=== PATIENT | female | born 1970 | race Caucasian/White ===

== ENCOUNTER → 2020-05-12 15:56 | Outpatient (BNVA) | payer OTHER, SELFPAY | PROVIDERS: PCP Internal Medicine; Referring Provider Internal Medicine; Visit Provider Nurse Practitioner | DX: Z76.89 Persons encountering health services in other specified circumstances (principal) ==

== ENCOUNTER 2020-05-23 09:53 | Outpatient (REF) | payer OTHER, SELFPAY ==
[2020-05-23 10:12] LABS: Basophils Absolute Auto 0.1 X10*3/uL (0.0-0.2); Basophils Percent Auto 0.5 % (0-2); Eosinophils Absolute Auto 0.2 X10*3/uL (0.0-0.4); Eosinophils Percent Auto 2.3 % (0-4); Hematocrit 45.9 % (37-47); Hemoglobin 15.1 g/dl (12.0-16.0); Imm Gran Abs Auto 0.04 X10*3/uL (0.00-0.03); Imm Gran Pct Auto 0.4 % (0.0-0.4); Lymphocytes Absolute Auto 2.1 X10*3/uL (1.2-4.9); Lymphocytes Percent Auto 22.4 % (20-40); MANUAL DIFF FLAG NO; Mean Corpuscular HGB Conc 32.9 g/dl (31.0-35.0); Mean Corpuscular Hemoglobin 28.4 pg (27.0-33.0); Mean Corpuscular Volume 86.3 fL (80-98); Mean Platelet Volume 10.5 fL (9.4-12.3); Monocytes Absolute Auto 0.6 X10*3/uL (0.1-1.2); Monocytes Percent Auto 6.5 % (2-11); Neutrophils Absolute Auto 6.2 X10*3/uL (2.0-8.3); Neutrophils Percent Auto 67.9 % (45-73); Platelet Count 323 X10*3/uL (160-400); Red Blood Count 5.32 X10*6/uL (4.20-5.50); Red Cell Distribution Width 13.2 % (11.0-16.0); White Blood Count 9.2 X10*3/uL (4.8-10.8)
[2020-05-23 10:46] LABS: Alanine Aminotransferase 11 U/L (0-31); Albumin Level 4.4 g/dL (3.5-5.0); Alkaline Phosphatase 74 U/L (39-117); Anion Gap 13 (12-20); Aspartate Amino Transferase 14 U/L (5-31); Bilirubin Total 0.6 mg/dL (0.0-1.0); Blood Urea Nitrogen 17 mg/dL (9-16); Calcium 9.4 mg/dL (8.4-10.2); Carbon Dioxide 30 mmol/L (22-29); Chloride 102 mmol/L (96-108); Cholesterol 214 mg/dL; Estimated Glomerular Filt Rate > 60; Glucose Random 107 mg/dL (60-115); HDL Cholesterol 57 mg/dL; LDL Cholesterol Calculated 134 mg/dl; Potassium 3.7 mmol/l (3.3-5.1); Sodium 141 mmol/L (135-145); Total Protein 8.1 g/dL (6.5-8.0); Triglycerides 116 mg/dL
[2020-05-25 04:32] LABS: Folate 8.8 ng/mL (> or = 4.0); Vitamin B12 184 pg/mL (200-900)
== END 2020-05-23 09:54 | disposition home or self-care (01) ==
LOC: HO.LAB 09:53
PROVIDERS: PCP Internal Medicine; Visit Provider Internal Medicine
DX: E78.00 Pure hypercholesterolemia, unspecified (principal)
CPT/HCPCS: 36415; 80053; 80061; 82607; 82746; 84443; 85025

== ENCOUNTER 2020-08-11 10:28 | Day surgery (SDC) | payer OTHER, SELFPAY ==
[2020-08-05 12:05] VITALS: BMI 32.7
[2020-08-05 13:40] VITALS: BMI 31.1
--- NOTE | 2020-08-10 10:46 | HO.ANESPROP2 ---
Documented by User: Adamaris Walter 08/10/20 10:52 HPI - Anesthesia Eval Consult details Narrative: 50yo F for Upper Endoscopy and Colonoscopy PMFSH Active Problems Active Problems: All Active Problems (Updated 08/05/20 @ 12:05 by Elina Reynolds) Annual physical exam (Acute) Dysphagia (Acute) Abscess of right earlobe (Acute) Plantar fasciitis of left foot (Acute) Vitamin B12 deficiency (Acute) Migraine (Acute) Family history of colon cancer (Acute) Hypercholesterolemia (Acute) Obesity (BMI 30-39.9) (Acute) Past Medical History Medical History Family history of colon cancer Hypercholesterolemia Migraine Obesity (BMI 30-39.9) Ovarian cyst Vitamin B12 deficiency Family History Family History Father Colon cancer Mother Lymphoma Maternal Grandmother Lymphoma Surgical History Surgical History History of dilatation and curettage History of left salpingo-oophorectomy Hx of colonoscopy (~1999) Social History Social History Smoking Status: Former smoker Years Smoked: 19 years old Smoking Quit Date: Use of substances other than those prescribed or required for medical reasons: No Advance Directives: No Advance Directives Information Provided: No Advance Directives on File: No Meds Allergies Allergy/AdvReac Type Severity Reaction Status Date / Time No Known Allergies Allergy Verified 08/05/20 13:40 Home Medications Medication Instructions Recorded Confirmed Last Taken Type multivitamin with minerals-ferrous 1 tab PO DAILY tab 03/09/20 06/26/20 Unknown History sulfate 4.5 mg iron tablet Exam Exam Date and Time: August 10, 2020 1046 Height,Weight and Vital Signs: Height 5 ft 6 in Weight 87.543 kg Assessment and Plan Assessment Anesthesia Assessment: Chart Reviewed Documented by User: Suzy Rivers 08/11/20 11:46 [facility] Past Medical History Medical History Family history of colon cancer Hypercholesterolemia Migraine Obesity (BMI 30-39.9) Ovarian cyst Vitamin B12 deficiency Family History Family History Father Colon cancer Mother Lymphoma Maternal Grandmother Lymphoma Family history of problems with anesthesia: No Surgical History Surgical History History of dilatation and curettage History of left salpingo-oophorectomy Hx of colonoscopy (~1999) History of Problems with Anesthesia: No Social History Social History Smoking Status: Former smoker Years Smoked: 19 years old Smoking Quit Date: Use of substances other than those prescribed or required for medical reasons: No Advance Directives: No Advance Directives Information Provided: No Advance Directives on File: No Meds Allergies Allergy/AdvReac Type Severity Reaction Status Date / Time No Known Allergies Allergy Verified 08/05/20 13:40 Home Medications Medication Instructions Recorded Confirmed Last Taken Type multivitamin with minerals-ferrous 1 tab PO DAILY tab 03/09/20 06/26/20 Unknown History sulfate 4.5 mg iron tablet Exam Height,Weight and Vital Signs: Vital Signs Temp Pulse Resp BP Pulse Ox 08/11/20 11:03 98.0 F 72 16 137/59 L 98 Pertinent Lab Results Pertinent Lab Results: 12 lead EKG: NSR 66. LAD. NS T wave abnormality. Narrative Narrative: Patient with inverted P waves on monitor. 12 lead EKG NSTW abnormality. Patient does not have any h/o cardiac symptoms. No CP, dizziness, faintness, palpitations. VSS. Ok to proceed. Airway Mallampati Class: II TM Dist: >3cm Neck ROM: Full Loose/Missing/Broken Teeth: Yes (Missing back right, broken back left) Heart: RRR Lungs: CTAB Assessment and Plan Assessment Anesthesia Assessment: Anesthesia Plan Discussed and Chart Reviewed Final Anesthetic Review NPO: Yes ASA Class: II Final Preanesthetic Review: No Changes in Pt Med Stat, Meds/Allgs Chart Reviewed, Consent Obtained/Reviewed and Anes Risks/Benef Reviewed Patient Risk: Low Procedure Risk: Low Assessment/Block/Sedation in SS: Assess/Block/Sedation-SS Anesthetic Plan Anesthetic Plan: MAC: Disposition: Standard PACU
--- NOTE | 2020-08-11 | ECG_ITS ---
Test Reason : PREOP Blood Pressure : / mmHG Vent. Rate : 066 BPM Atrial Rate : 066 BPM P-R Int : 154 ms QRS Dur : 084 ms QT Int : 412 ms P-R-T Axes : 000 -35 043 degrees QTc Int : 431 ms Ectopic atrial rhythm Left axis deviation Nonspecific T wave abnormality Abnormal ECG No previous ECGs available Referred By: Suzy Rivers Electronically Signed By:Preston Hankins
[2020-08-11 11:03] VITALS: BP 137/59; PULSE 72; RESP 16; TEMP 36.7; O2SAT 98
--- NOTE | 2020-08-11 11:27 | P.OP_ITS ---
Operative Note Operative Note Date of Service: 08/11/20 Narrative: Pre-op diagnosis: Colon cancer screening, family history of colon cancer(Dad in his 50's), dysphagia Post-op diagnosis: other (Gastritis, dysphagia, Colon polyps, diverticulosis, hemorrhoids) Procedure: FLEXIBLE TRANSORAL UPPER GASTROINTESTINAL ENDOSCOPY WITH BIOPSIES AND ESOPHAGEAL BALLOON DILATION AND COLONOSCOPY TILL CECUM WITH BIOPSIES, SNARE POLYPECTOMY AND SUBMUCOSAL INJECTION UPPER ENDOSCOPY Consent: Indications for the procedure and potential complications of bleeding, perforation, reaction to medications and missed diagnosis were discussed with the patient and informed consent was obtained. Instrument: Olympus GIF H 190 mid size upper endoscope Monitoring: Vital signs and clinical assessment, continuous EKG monitoring, Pulse oximetry, Carbon Dioxide monitoring and blood pressure monitoring were done throughout the procedure. Procedure: The patient was placed in the left lateral decubitis position and pre-procedure medications were administered and a bite block was placed. The endoscope was inserted into the mouth and advanced under direct vision to the third part of duodenum. A careful inspection was made as the upper endoscope was withdrawn including a retroflexed examination of the proximal stomach; Findings and interventions are described below. Findings: Larynx: Normal Esophagus: Tortuous esophagus with increased tertiary contractions without stricture or ring - biopsies were obtained from proximal esophagus to check for EOE. GE junction at 38 cms.. No esophagitis or Rockwell's. Esophageal balloon dilation was performed with 19 and 20 mm CRE balloon for 60 seconds at each level. Stomach: Moderate gastric erythema with linear chronic appearing 1-2 cms erosions in the antrum and fundus. Biopsies were obtained. Grade 2 flap valve on retroflexed examination of the cardia. Duodenum: Normal bulb and descending duodenum Intervention: Biopsies and esophageal balloon dilation as noted above COLONOSCOPY PROCEDURE NOTE Consent: Indications for the procedure and potential complications of bleeding, perforation, reaction to medications and missed diagnosis were discussed with the patient and informed consent was obtained. Instrument: Olympus PCF H 190 L variable stiffness pediatric colonoscope Monitoring: Vital signs and clinical assessment, intermittent blood pressure monitoring, continuous EKG monitoring, Pulse oximetry and Carbon Dioxide monitoring were done throughout the procedure. Colon withdrawl time was 45 minutes. Procedure: The patient was placed in the left lateral decubitis position and pre-procedure medications were administered. After a digital rectal examination of the ano-rectum, the video colonoscope was inserted into the rectum and advanced through the colon to the cecum. The colonoscope was slowly withdrawn in a retrograde panoramic fashion and the colon mucosa was carefully examined including a retroflexed view of the rectum. Findings and interventions are described below. Procedure Difficulty: : Without difficulty Findings: Terminal Ileum: Not evaluated Cecum: A 9-10 mm sessile polyp removed with a hot snare. Ascending Colon: A 7-8 mm sessile polyp at hepatic flexure removed with a cold snare. Transverse Colon: Six 5 mm to 2.5 cms sessile polyps removed with hot and cold snares and one small polyp was removed with a cold biopsy. Descending Colon: A 12 mm sessile polyp removed with a hot snare. A 3 cms flat polyp at 70 cms raised with 4 cc of Orise solution and removed piece meal with a hot snare. Sigmoid Colon: A few 5-8 mm polyps in the rectosigmoid were not removed due to excessive length of the procedure. Moderate diverticulosis Rectum: A few 5-8 mm polyps in the rectosigmoid were not removed due to excessive length of the procedure. Ano-rectum: Moderate internal hemorrhoids Colon preparation: Good after some irrigation Impression and Post Procedure Diagnosis: Endoscopy Findings: ESOPHAGUS: Tortuous esophagus with increased tertiary contractions without stricture or ring - biopsies were obtained from proximal esophagus to check for EOE. GE junction at 38 cms.. No esophagitis or Rockwell's. Esophageal balloon dilation was performed with 19 and 20 mm CRE balloon for 60 seconds at each level. Dysphagia is likely due to esophageal motility disorder versus EOE. STOMACH: Moderate gastric erythema with linear chronic appearing 1-2 cms eros ions in the antrum and fundus. Biopsies were obtained. Grade 2 flap valve on retroflexed examination of the cardia. Colonoscopy Findings: Ten medium to large sized polyps removed A few 5-8 mm polyps in the recto-sigmoid were not removed due to excessive length of the procedure. Moderate diverticulosis seen in the sigmoid colon Moderate hemorrhoids on retroflexed exam. Plan: Await pathology results Patient has an appointment on 09/01/20 in the [facility] with Sindi Saldaña NP . Repeat Colonoscopy interval based on path results - in 1 year since multiple polyps were removed. Consider genetic testing due to positive family history and multiple colon polyps. Colon polyps and diverticulosis handouts were given in the discharge area Surgeon: Clifford Marquez MD Anesthesia: MAC (Ruth Fisher CRNA) Manager Technical Sales: Anastasiia Suazo Estimated blood loss (mL): 0 Pathology: other ( a. duodenal bulb nodule b. gastric errosions bxs c. antral bxs r/o h pylori d. proximal esophagus r/o eoe e. transverse colon polyps f. cecal polyp ) Condition: stable Disposition: PACU
--- NOTE | 2020-08-11 11:27 | MHC.SHP ---
Pre-Procedural Eval Section A The patient is an INPATIENT: No The History & Physical has been completed within 30 days and I have reviewed it.: No Section B Chief Complaint: Dysphagia,Screening Details of Present Illness: Colon cancer screening, familyhistory of colon cancer, dysphagia Relevant Family History (Specify if Yes): Yes Relevant Social History: Tobacco Use (past smoker) Present Medications: see Short Stay Collaborative assessment Medical History: Significant History (Family history of colon cancer Hypercholesterolemia Migraine Obesity (BMI 30-39.9) Ovarian cyst Vitamin B12 deficiency) History of Previous Operations: Relevant previous surgery/procedure and date(s) (History of dilatation and curettage History of left salpingo-oophorectomy Hx of colonoscopy (~1999)) Allergies: Allergies Allergy/AdvReac Type Severity Reaction Status Date / Time No Known Allergies Allergy Verified 08/05/20 13:40 Review of Systems Sugical H&P ROS: Negative: Constitution, Cardiovascular, Respiratory and Gastrointestinal Exam Surgical H&P Exam: Normal: Heart, Normal: Lungs, Normal: Extremities and Normal: Abdomen Plan Diagnosis/Plan: Unchanged I have reviewed the history and physical and performed a pertinent physical examination on my patient. No changes have occurred unless specified.
[2020-08-11] MEDS: Lactated Ringers 1,000 ML 100 ML IVCONT (11:42)
[2020-08-11 13:05] VITALS: BP 123/63; PULSE 78; RESP 16; TEMP 36.1; O2SAT 96
[2020-08-11 13:20] VITALS: BP 123/67; PULSE 75; RESP 17; TEMP 36.1; O2SAT 98
== END 2020-08-11 13:43 | disposition home or self-care (01) ==
PROVIDERS: PCP Internal Medicine; Visit Provider Internal Medicine Gastroenterology
PROC: (CPT 45385; principal; 2020-08-11 11:40)
DX: Z12.11 Encounter for screening for malignant neoplasm of colon (principal); Z80.0 Family history of malignant neoplasm of digestive organs; D12.0 Benign neoplasm of cecum; D12.3 Benign neoplasm of transverse colon; D12.4 Benign neoplasm of descending colon; K57.30 Diverticulosis of large intestine without perforation or abscess without bleeding; K64.8 Other hemorrhoids; K22.8 Other specified diseases of esophagus; K29.50 Unspecified chronic gastritis without bleeding; K25.9 Gastric ulcer, unspecified as acute or chronic, without hemorrhage or perforation; K29.80 Duodenitis without bleeding; E53.8 Deficiency of other specified B group vitamins; Q45.8 Other specified congenital malformations of digestive system; Z87.891 Personal history of nicotine dependence
CPT/HCPCS: 45385; 45380; 43249; 43239; 88305; 88342; 93005; C1726; J3010

== ENCOUNTER → 2020-09-01 16:09 | Outpatient (BNVA) | payer OTHER, SELFPAY | PROVIDERS: PCP Internal Medicine; Visit Provider Nurse Practitioner ==

== ENCOUNTER 2020-12-01 15:43 | Outpatient (REF) | payer OTHER, SELFPAY ==
--- NOTE | ~2020-12-01 | MM_ITS ---
EXAMINATION: MM SCREENING DIGITAL BREAST TOMOSYNTHESIS, BILATERAL CLINICAL INFORMATION: Screening. Asymptomatic. Family history breast cancer, mother. The lifetime risk of breast cancer based on the Tyrer-Cuzick Model is 21%. COMPARISON: Mammography: 03/27/2018, 12/26/2016 TECHNIQUE: Digital breast tomosynthesis is performed in both the craniocaudal and mediolateral oblique views along with computer-aided detection (CAD). Synthesized 2D images are generated from the tomosynthesis. FINDINGS: There are scattered areas of fibroglandular density (ACR BI-RADS breast composition Category b). There are no significant masses, abnormal calcifications, or other abnormalities. MM/MM tomosynthesis screening BI IMPRESSION: No mammographic evidence of malignancy. ASSESSMENT: BI-RADS 1: Negative RECOMMENDATION: 1. Routine annual mammography screening. 2. The lifetime risk of breast cancer based on the Tyrer-Cuzick Model is 21%. Additional annual adjunct screening with breast MRI may be of benefit in women with a risk score of 20% or greater. This patient's information was entered into a reminder system with a target due date for their next mammogram.
== END 2020-12-01 15:44 | disposition home or self-care (01) ==
LOC: HO.MAMMO 15:43
PROVIDERS: PCP Internal Medicine; Visit Provider Internal Medicine
DX: Z12.31 Encounter for screening mammogram for malignant neoplasm of breast (principal)
CPT/HCPCS: 77063; 77067

== ENCOUNTER → 2021-03-05 15:36 | Outpatient (BNVA) | payer OTHER, SELFPAY | PROVIDERS: PCP Internal Medicine; Visit Provider Nurse Practitioner ==

== ENCOUNTER → 2021-08-17 16:22 | Outpatient (BNVA) | payer OTHER, SELFPAY | PROVIDERS: PCP Internal Medicine; Referring Provider Internal Medicine; Visit Provider Nurse Practitioner | DX: Z13.89 Encounter for screening for other disorder (principal) ==

== ENCOUNTER 2022-03-26 10:25 | Outpatient (REF) | payer OTHER, SELFPAY ==
[2022-03-26 10:39] LABS: MANUAL DIFF FLAG NO
[2022-03-26 11:16] LABS: Basophils Absolute Auto 0.1 X10*3/uL (0.0-0.2); Basophils Percent Auto 0.5 % (0-2); Eosinophils Absolute Auto 0.2 X10*3/uL (0.0-0.4); Eosinophils Percent Auto 1.5 % (0-4); Hematocrit 44.5 % (37.0-47.0); Hemoglobin 14.2 g/dl (12.0-16.0); Imm Gran Abs Auto 0.04 X10*3/uL (0.00-0.03); Imm Gran Pct Auto 0.4 % (0.0-0.4); Lymphocytes Absolute Auto 1.6 X10*3/uL (1.2-4.9); Lymphocytes Percent Auto 15.5 % (20-40); Mean Corpuscular HGB Conc 31.9 g/dl (31.0-35.0); Mean Corpuscular Hemoglobin 27.5 pg (27.0-33.0); Mean Corpuscular Volume 86.2 fL (80.0-98.0); Mean Platelet Volume 11.6 fL (9.4-12.3); Monocytes Absolute Auto 0.6 X10*3/uL (0.1-1.2); Monocytes Percent Auto 6.2 % (2-11); Neutrophils Absolute Auto 7.8 x10*3/uL (2.0-8.3); Neutrophils Percent Auto 75.9 % (45-73); Platelet Count 287 X10*3/uL (160-400); Red Blood Count 5.16 X10*6/uL (4.20-5.50); Red Cell Distribution Width 13.5 % (11.0-16.0); White Blood Count 10.2 X10*3/uL (4.8-10.8)
[2022-03-26 11:31] LABS: Alanine Aminotransferase 10 U/L (0-31); Albumin Level 3.8 g/dL (3.5-5.0); Alkaline Phosphatase 53 U/L (39-117); Anion Gap 15 (12-20); Aspartate Amino Transferase 16 U/L (5-31); Bilirubin Total 0.6 mg/dL (0.0-1.0); Blood Urea Nitrogen 8 mg/dL (9-16); Calcium 8.6 mg/dL (8.4-10.2); Carbon Dioxide 22 mmol/L (22-29); Chloride 106 mmol/L (96-108); Cholesterol 223 mg/dL; Estimated Glomerular Filt Rate > 60; Glucose Random 95 mg/dL (60-115); HDL Cholesterol 55 mg/dL; LDL Cholesterol Calculated 146 mg/dl; Potassium 4.4 mmol/L (3.3-5.1); Sodium 139 mmol/L (135-145); Total Protein 7.3 g/dL (6.5-8.0); Triglycerides 114 mg/dL
[2022-03-26 11:55] LABS: Free T4 (Free Thyroxine) 0.97 ng/dL (0.71-1.85)
[2022-03-26 12:07] LABS: Folate 14.1 ng/mL (> or = 4.0); Vitamin B12 < 148 pg/mL (200-900)
[2022-03-26 15:17] LABS: Vitamin D 25-OH Total 15.6 ng/mL (>30)
[2022-03-30 23:17] LABS: Intrinsic Factor Antibodies Negative (Negative)
[2022-03-31 13:52] LABS: Parietal Cell Antibody <=20.0 Unit (<=20.0)
== END 2022-03-26 10:26 | disposition home or self-care (01) ==
LOC: HO.LAB 10:25
PROVIDERS: PCP Internal Medicine; Visit Provider Internal Medicine
DX: E53.8 Deficiency of other specified B group vitamins (principal); E78.00 Pure hypercholesterolemia, unspecified
CPT/HCPCS: 36415; 80053; 80061; 82306; 82607; 82746; 83516; 84439; 84443; 85025; 86340

== ENCOUNTER → 2022-04-05 07:30 | Outpatient (REF) | payer OTHER, SELFPAY ==
--- NOTE | 2022-04-05 07:33 | CA_ITS ---
Transthoracic Echocardiogram Patient (Last, First, Middle): Keisha Tracy J Gender: Female Date of : 1970 Age: 52 Procedure Date: 04/05/2022 Procedure Type: Transthoracic Echocardiogram Location: OP Height: 167.64 cm Weight: 90.72 kg BSA: 2.00 m2 Heart Rate: 73 bpm BP: 150 / 70 mmHg Licensing Coordinator: CHUN Referring MD: Drew Lambert MD Symptoms: I49.9 - Cardiac arrhythmia, unspecified Study Quality: Adequate ECG Rhythm: Sinus with PVCs Conclusions: - The left ventricular systolic function is normal. The calculated ejection fraction is 61% by biplane method. - Mildly increased right ventricular cavity size. - No obvious valvular pathology seen on this study. Findings Left Ventricle Normal left ventricular cavity size. There is normal left ventricular wall thickness. The left ventricular systolic function is normal. The calculated ejection fraction is 61% by biplane method. There is no evidence of regional wall motion abnormalities. Diastolic function is normal for age. Right Ventricle Mildly increased right ventricular cavity size. There is normal right ventricular systolic function. Atria Both atria are normal in size. Aortic Valve There is a normal trileaflet aortic valve. There is no aortic valve stenosis. There is no aortic valve regurgitation. Mitral Valve The mitral valve appears normal. There is trace mitral valve regurgitation. There is no mitral valve stenosis. Pulmonic Valve The pulmonic valve is likely normal. Tricuspid Valve Normal tricuspid valve structure. There is mild tricuspid valve regurgitation. There is no evidence of pulmonary hypertension. Great Vessels The asc aorta is normal in size. Venous The inferior vena cava is normal in size and collapses greater than 50% with inspiration. Pericardium/Pleural There is no evidence of pericardial effusion. Prior Study Comparison No prior study available for comparison. Recommendations, Care & Conclusions No obvious valvular pathology seen on this study. Measurements 2D Linear Measurements IVSd: 0.83 0.6-0.9/0.6-1.0 cm LVIDd: 5.19 3.9-5.3/4.2-5.9 cm LVIDd Index: 2.60 2.4-3.2/2.2-3.1 cm/m2 LVIDs: 3.36 2.0-3.6 cm LVPWd: 0.99 0.7-1.1 cm LA Diam: 3.50 2.7-3.8/3.0-4.0 cm LAIDs Index: 1.75 1.5-2.3 cm/m2 LV Mass: 213.32 67-162/88-224 g LV Mass Index: 106.66 43-95/49-115 g/m2 LVOT Diam: 1.90 3.0+(-)1.3 cm 2D Systolic Function EF 4C: 65.00 >55% EF 2C: 56.20 >55% EF BiP: 60.80 >55% Mitral Valve MV Pk E: 0.74 MV PK A: 0.63 MV Decel Time: 308.00 E/A: 1.20 E'Lateral: 8.17 E'Medial: 4.98 E/E' Med: 14.90 E/E' Lat: 9.10 PHT: 90.00 MVA PHT: 2.44 Decel [place]: 2.40 Aortic Valve AoV Pk Rgant: 1.40 AoV Mn Grant: 1.04 AoV VTI: 0.34 AoV Pk Grad: 8.00 Aov Mn Grad: 5.00 TYRONE Cont.VTI: 1.89 LVOT LVOT Pk Grant: 0.98 LVOT Mn Grant: 0.73 LVOT VTI: 0.22 LVOT Pk Grad: 4.00 LVOT Mn Grad: 3.00 LVOT Diam: 1.90 LVOT Area: 2.84 Diastolic Function MV Pk E: 0.74 MV Pk A: 0.63 E/A: 1.20 E'Medial: 4.98 E/E' Med: 14.90 E' Laterial: 8.17 E/E' Lat: 9.10 Right Ventricle TAPSE (mm): 26.70 TVS' Grant: 11.40 Tricuspid Valve TR Pk Grant: 1.87 TR Pk Grad: 14.00 RA Press: 3.00 RVSP: 17.00 Great Vessels Aorta Sinus of Valsalva: 3.00 2.0-3.5 cm Ao Asc: 3.30 2.1-3.4 cm Pulmonary Valve PV Pk Grant: 0.95 Peak PV Grad: 4.00 Updated in Other Vendor System with Status of Final Tommy Hoffman MD electronically signed on 04/07/2022 12:09:15 PM with status of Final
== END ==
LOC: HO.CARD 07:30
PROVIDERS: Visit Provider Internal Medicine
DX: I49.9 Cardiac arrhythmia, unspecified (principal)
CPT/HCPCS: 93306

== ENCOUNTER 2022-04-13 07:35 | Outpatient (REF) | payer OTHER, SELFPAY ==
--- NOTE | ~2022-04-13 | MM_ITS ---
EXAMINATION: MM SCREENING DIGITAL BREAST TOMOSYNTHESIS, BILATERAL CLINICAL INFORMATION: Screening. Asymptomatic. The lifetime risk of breast cancer based on the Tyrer-Cuzick Model is 19%. COMPARISON: Mammography: 12/01/2020, 03/27/2018, 12/26/2016 TECHNIQUE: Digital breast tomosynthesis is performed in both the craniocaudal and mediolateral oblique views along with computer-aided detection (CAD). Synthesized 2D images are generated from the tomosynthesis. FINDINGS: There are scattered areas of fibroglandular density (ACR BI-RADS breast composition Category b). There are no significant masses, abnormal calcifications, or other abnormalities. Parenchymal pattern is similar to prior studies. There is no developing density or architectural abnormality. The axilla and skin contours are unremarkable. No significant changes. MM/MM tomosynthesis screening BI IMPRESSION: No mammographic evidence of malignancy. ASSESSMENT: BI-RADS 1: Negative RECOMMENDATION: Routine annual mammography screening. This patient's information was entered into a reminder system with a target due date for their next mammogram.
== END 2022-04-13 07:36 | disposition home or self-care (01) ==
LOC: HO.MAMMO 07:35
PROVIDERS: PCP Internal Medicine; Visit Provider Internal Medicine
DX: Z12.31 Encounter for screening mammogram for malignant neoplasm of breast (principal)
CPT/HCPCS: 77063; 77067

== ENCOUNTER → 2022-06-08 09:21 | Outpatient (BNVA) | payer OTHER, SELFPAY | PROVIDERS: PCP Internal Medicine; Referring Provider Internal Medicine; Visit Provider Internal Medicine Cardiovascular Disease | DX: I51.7 Cardiomegaly (principal); G47.30 Sleep apnea, unspecified | CPT/HCPCS: 93005 ==

== ENCOUNTER → 2022-06-20 07:29 | Outpatient (REF) | payer OTHER, SELFPAY ==
--- NOTE | 2022-06-20 07:32 | HM_ITS ---
conclusion: 1. Patient was monitored for total period of 4 days and 16 hours 2. Baseline rhythm was normal sinus rhythm with average heart rate of 80 beats per minute 3. No significant pauses or bradycardia noted 4. Total of 71,726 PVCs accounting for 26% of total beats account for frequent PVCs 5. Frequent triplets of nonsustained VT, fastest at 193 beats per minute 6. Patient reported 4 events correlated with isolated PVCs MTDD
== END ==
LOC: HO.CARD 07:29
PROVIDERS: PCP Internal Medicine; Visit Provider Internal Medicine Cardiovascular Disease
DX: I49.9 Cardiac arrhythmia, unspecified (principal)
CPT/HCPCS: 93242

== ENCOUNTER → 2022-07-06 07:45 | Outpatient (REF) | payer OTHER, SELFPAY ==
--- NOTE | 2022-07-06 07:49 | CA_ITS ---
Acquisition Time: 2022-07-06 08:07:03 Total Exercise Time: 00:07:31 Test Indications: I47.29 - Other ventricular tach Medications: Protocol: BRIAN Max HR: 169 BPM 101% of Pred: 167 BPM Max BP: 186/092 mmHG Max Work Load: 9.3 METS Exercise stress trest using Brian protocol, total of 7 min 31 sec. METS 9.30 and TAPHR up to 101 %. Pt tolerated bwell denies CP, mild SOB that resolved in recovery. EKG with PVC and occ PAC's without any ischemic changes. Normotensive response to exercise. Test reviewed with Dr. Reddy. Referred By: Preston Hankins Overread By: Kathrin Zambrano NP
== END ==
LOC: HO.CARD 07:45
PROVIDERS: PCP Internal Medicine; Visit Provider Internal Medicine Cardiovascular Disease
DX: I47.29 Other ventricular tachycardia (principal)
CPT/HCPCS: 93017

== ENCOUNTER → 2022-08-09 15:47 | Outpatient (REF) | payer OTHER, SELFPAY | LOC: HO.SL 15:47 | PROVIDERS: PCP Internal Medicine; Visit Provider Internal Medicine Cardiovascular Disease | DX: G47.30 Sleep apnea, unspecified (principal); R06.83 Snoring | CPT/HCPCS: 95806 ==

== ENCOUNTER 2022-09-30 10:59 | Day surgery (SDC) | payer OTHER, SELFPAY ==
[2022-07-27 09:36] VITALS: BMI 31.4
--- NOTE | 2022-09-29 10:19 | P.CONAN_ITS ---
Documented by User: Adamaris Walter NP 09/29/22 10:23 HPI - Anesthesia Eval Consult details Narrative: 52yo F for Colonoscopy 2022 Cardiac w/u for arrhythmia (PVCs noted at [facility] during surgical stay) with negative stress, echo, holter ON LICENSE OF [facility] Active Problems Active Problems: All Active Problems (Updated 09/26/22 @ 17:01 by Drew Lambert MD) Dysphagia (Acute) Abscess of right earlobe (Acute) Plantar fasciitis of left foot (Acute) Tubulovillous adenoma (Acute) Gastrointestinal multiple polyposis syndrome (Acute) Impaired glucose tolerance (Acute) Annual physical exam (Acute) Arrhythmia (Acute) Right ventricular dilation (Acute) NSVT (nonsustained ventricular tachycardia) (Acute) Obesity (BMI 30-39.9) (Acute) Hypercholesterolemia (Acute) Vitamin B12 deficiency (Acute) Family history of colon cancer (Acute) Migraine (Acute) Past Medical History Medical History (Updated 09/26/22 @ 17:01 by Drew Lambert MD) Annual physical exam Family history of colon cancer Hypercholesterolemia Migraine Obesity (BMI 30-39.9) Ovarian cyst Sleep disorder breathing Vertigo Vitamin B12 deficiency Family History Family History Father Colon cancer Mother Lymphoma Breast cancer Maternal Grandmother Lymphoma Family history of problems with anesthesia: No Surgical History Surgical History (Updated 07/27/22 @ 09:28 by Eloina Shabazz RN) History of dilatation and curettage History of left salpingo-oophorectomy Hx of colonoscopy (~1999) Status post oophorectomy History of Problems with Anesthesia: No Social History Social History (Updated 06/08/22 @ 09:31 by LIANET Condon) Housing: House Alcohol intake: current Alcohol intake frequency: holidays/special occasions only Patient Tobacco Use Status: Former Tobacco user e-Cigarette/Vaping Use: Never Used Second Hand Smoke Exposure: No Are you DNR?: No Advance Directives: No Advance Directives Information Provided: Yes Nutrition Risks: No Nutritional Risk Current occupational status: employed Cognitive needs: No Hearing needs: No Vision needs: Yes Meds Allergies Allergy/AdvReac Type Severity Reaction Status Date / Time No Known Allergies Allergy Verified 09/26/22 16:52 Home Medications Medication Instructions Recorded Confirmed Last Taken Type mecobalamin (vitamin B12) 1,000 1,000 mcg sublingual BEDTIME 03/15/21 07/27/22 Unknown History mcg disintegrating tablet,sublingual ferrous sulfate 325 mg (65 mg 325 mg PO DAILY 03/25/22 07/27/22 Unknown History iron) tablet (Feosol) norethindrone acetate 1.5 1 tab PO DAILY 03/25/22 07/27/22 Unknown History mg-ethinyl estradiol 30 mcg tablet Exam Exam Date and Time: September 29, 2022 1019 Height,Weight and Vital Signs: Height 5 ft 6 in Weight 88.3 kg Pertinent Lab Results Pertinent Lab Results: Laboratory Tests 03/26/22 03/26/22 10:38 10:38 WBC 10.2 Hgb 14.2 Hct 44.5 Plt Count 287 Sodium 139 Potassium 4.4 Chloride 106 Carbon Dioxide 22 BUN 8 L Creatinine 0.77 Narrative Narrative: EKG 05/2022 Normal sinus rhythm, normal axis, possible left atrial enlargement, QTC 414 milliseconds. Exercise Stress 06/2022 Protocol: WILFRED ? Max HR: 169 BPM? 101% of? Pred: 167 BPM Max BP: 186/092 mmHG Max Work Load: 9.3 METS ? Exercise stress trest using Wilfred protocol, total of 7 min 31 sec.? METS 9.30 ?and TAPHR up to 101? %.? Pt tolerated bwell denies CP, mild SOB that resolved ?in recovery.? EKG with PVC and occ PAC's without any ischemic changes. ?Normotensive response to exercise.? Test reviewed with Dr. Reddy. Holter 06/2022 ?conclusion: 1.? Patient was monitored for total period of 4 days and 16 hours 2. Baseline rhythm was normal sinus rhythm with average heart rate of 80 beats per minute 3.? No significant pauses or bradycardia noted 4. Total of 71,726 PVCs accounting for 26% of total beats account for frequent PVCs 5. Frequent triplets of nonsustained VT, fastest at 193 beats per minute 6. Patient reported 4 events correlated with isolated PVCs ECHO 03/2022 Conclusions: - The left ventricular systolic function is normal.? The ? calculated ejection fraction is 61% by biplane method. ? - Mildly increased right ventricular cavity size.? - No obvious valvular pathology seen on this study.? ? Assessment and Plan Assessment Anesthesia Assessment: Chart Reviewed Final Anesthetic Review Family History of Problems with Anesthesia: No History of Problems with Anesthesia: No Documented by User: Junaid Appiah MD 09/30/22 12:59 ON LICENSE OF [facility] Past Medical History Medical History (Updated 09/26/22 @ 17:01 by Drew Lambert MD) Annual physical exam Family history of colon cancer Hypercholesterolemia Migraine Obesity (BMI 30-39.9) Ovarian cyst Sleep disorder breathing Vertigo Vitamin B12 deficiency Family History Family History Father Colon cancer Mother Lymphoma Breast cancer Maternal Grandmother Lymphoma Surgical History Surgical History (Updated 07/27/22 @ 09:28 by Eloina Shabazz RN) History of dilatation and curettage History of left salpingo-oophorectomy Hx of colonoscopy (~1999) Status post oophorectomy Social History Social History (Updated 06/08/22 @ 09:31 by LIANET Condon) Housing: House Alcohol intake: current Alcohol intake frequency: holidays/special occasions only Patient Tobacco Use Status: Former Tobacco user e-Cigarette/Vaping Use: Never Used Second Hand Smoke Exposure: No Are you DNR?: No Advance Directives: No Advance Directives Information Provided: Yes Nutrition Risks: No Nutritional Risk Current occupational status: employed Cognitive needs: No Hearing needs: No Vision needs: Yes Meds Allergies Allergy/AdvReac Type Severity Reaction Status Date / Time No Known Allergies Allergy Verified 09/26/22 16:52 Home Medications Medication Instructions Recorded Confirmed Last Taken Type mecobalamin (vitamin B12) 1,000 1,000 mcg sublingual BEDTIME 03/15/21 07/27/22 Unknown History mcg disintegrating tablet,sublingual ferrous sulfate 325 mg (65 mg 325 mg PO DAILY 03/25/22 07/27/22 Unknown History iron) tablet (Feosol) norethindrone acetate 1.5 1 tab PO DAILY 03/25/22 07/27/22 Unknown History mg-ethinyl estradiol 30 mcg tablet Exam Airway Mallampati Class: II TM Dist: >3cm Neck ROM: Full Assessment and Plan Assessment Anesthesia Assessment: Anesthesia Plan Discussed Final Anesthetic Review NPO: Yes ASA Class: II Final Preanesthetic Review: No Changes in Pt Med Stat, Meds/Allgs Chart Reviewed, Consent Obtained/Reviewed and Anes Risks/Benef Reviewed Patient Risk: Intermediate Procedure Risk: Low Anesthetic Plan Anesthetic Plan: MAC: Disposition: Standard PACU
[2022-09-30] MEDS: Lactated Ringers 1,000 ML 100 ML IVCONT (11:35)
--- NOTE | 2022-09-30 12:06 | MHC.SHP ---
Pre-Procedural Eval Section A Date of Service: 09/30/22 The patient is an INPATIENT: No The History & Physical has been completed within 30 days and I have reviewed it.: No Section B Chief Complaint: Screening, history of colon polyps Relevant Family History (Specify if Yes): Yes Relevant Social History: Tobacco Use (former smoker) Present Medications: see Short Stay Collaborative assessment Medical History: Significant History (Family history of colon cancer Hypercholesterolemia Migraine Obesity (BMI 30-39.9) Ovarian cyst Vitamin B12 deficiency) History of Previous Operations: Relevant previous surgery/procedure and date(s) (History of dilatation and curettage History of left salpingo-oophorectomy Hx of colonoscopy (~1999)) Allergies: Allergies Allergy/AdvReac Type Severity Reaction Status Date / Time No Known Allergies Allergy Verified 09/26/22 16:52 Review of Systems Sugical H&P ROS: Negative: Constitution, Cardiovascular, Respiratory and Gastrointestinal Exam Surgical H&P Exam: Normal: Heart, Normal: Lungs, Normal: Extremities and Normal: Abdomen Plan Diagnosis/Plan: Unchanged I have reviewed the history and physical and performed a pertinent physical examination on my patient. No changes have occurred unless specified. Time Spent With Patient Time: Total time managing care of this patient today ____ minutes.
[2022-09-30 12:14] VITALS: BP 118/63; PULSE 88; RESP 18; TEMP 36.4; O2SAT 97
--- NOTE | 2022-09-30 12:47 | W.PM.OPN ---
Operative Note Operative Note Date of Service: 09/30/22 Narrative: COLONOSCOPY TILL CECUM WITH SNARE POLYPECTOMY, SUBMUCOSAL INJECTION AND HEMOCLIP PLACEMENT Pre-op diagnosis: Screening, follow-up of multiple colon polyps Post-op diagnosis:? Colon polyps, diverticulosis, hemorrhoids Endoscopist:? Clifford Marquez MD Anesthesia:?MAC Consent: Indications for the procedure and potential complications of bleeding, perforation, reaction to medications and missed diagnosis were discussed with the patient and informed consent was obtained. Instrument: Olympus PCF H 190 L variable stiffness pediatric colonoscope Monitoring: Vital signs and clinical assessment, intermittent blood pressure monitoring, continuous EKG monitoring, Pulse oximetry and Carbon Dioxide monitoring were done throughout the procedure. Please see anesthesia flowsheet. Colon withdrawl time was 30 minutes. Procedure: The patient was placed in the left lateral decubitis position and pre-procedure medications were administered. After a digital rectal examination of the ano-rectum, the video colonoscope was inserted into the rectum and advanced through the colon to the cecum. The colonoscope was slowly withdrawn in a retrograde panoramic fashion and the colon mucosa was carefully examined including a retroflexed view of the rectum. Findings and interventions are described below. Procedure Difficulty: Colon was long and there was some loop formation. LLQ pressure was applied to intubate the cecum Findings: Terminal Ileum: Not evaluated Cecum: Normal Ascending Colon: A 10 -12 mm sessile polyp in the distal ascending colon - removed with a hot snare Transverse Colon: A 3 cms flat polyp at 75 - 80 cms. Polyp was raised with 5 cc of Eleview and removed piecemeal with a hot snare. Polypectomy site was closed with a hemoclip and marked by Wandy Ink A 2nd 2.5 cms polyp at 60 cms. Polyp was raised with 3 cc of Eleview and removed piecemeal with a hot snare. Polypectomy site was marked with Wandy ink Descending Colon: Normal Sigmoid Colon: Two 8 to 12 mm sessile polyps - removed with a hot snare. Moderate diverticulosis Rectum: Normal Ano-rectum: Moderate internal hemorrhoids Colon preparation: Good after some irrigation Impression and Post Procedure Diagnosis: Colonoscopy Findings: Four medium to large sized polyps removed Moderate diverticulosis seen in the sigmoid colon Moderate hemorrhoids on retroflexed exam. Plan: Await pathology results Patient has an appointment on 10/18/22 in the GI Clinic with Sindi Saldaña NP. Repeat Colonoscopy interval based on path results - in 1-2 years if polyps are adenomatous and due to a hx of multiple colon polyps in the past Above findings were reviewed with the patient and colon polyps handout was given in the discharge area
[2022-09-30 13:48] VITALS: BP 141/92; PULSE 89; RESP 16; TEMP 36.4; O2SAT 97
[2022-09-30 14:03] VITALS: BP 107/89; PULSE 81; RESP 18; O2SAT 98
[2022-09-30 14:09] VITALS: TEMP 36.9
== END 2022-09-30 14:30 | disposition home or self-care (01) ==
PROVIDERS: PCP Internal Medicine; Visit Provider Internal Medicine Gastroenterology
PROC: 0DJD8ZZ Inspection of Lower Intestinal Tract, Via Natural or Artificial Opening Endoscopic (ICD-10-PCS; CPT 45378; principal; 2022-09-30 13:00)
DX: Z12.11 Encounter for screening for malignant neoplasm of colon (principal); Z86.010 Personal history of colon polyps; Z80.0 Family history of malignant neoplasm of digestive organs; D12.2 Benign neoplasm of ascending colon; D12.3 Benign neoplasm of transverse colon; D12.4 Benign neoplasm of descending colon; D12.5 Benign neoplasm of sigmoid colon; K57.30 Diverticulosis of large intestine without perforation or abscess without bleeding; K64.8 Other hemorrhoids; E78.00 Pure hypercholesterolemia, unspecified; E53.8 Deficiency of other specified B group vitamins; G43.909 Migraine, unspecified, not intractable, without status migrainosus; E66.9 Obesity, unspecified; Z68.32 Body mass index [BMI] 32.0-32.9, adult; Z79.899 Other long term (current) drug therapy; Z87.891 Personal history of nicotine dependence
CPT/HCPCS: 45385; 45381; 88305

== ENCOUNTER 2023-03-20 16:43 | Outpatient (AMB) | payer OTHER, SELFPAY ==
[2023-03-20 16:51] VITALS: BP 170/104; PULSE 50; O2SAT 98; BMI 32.0
--- NOTE | 2023-03-20 16:51 | MHC.PC.OV ---
Vital Signs 03/20/23 16:51 Height 5 ft 6 in Weight 198 lb BMI 32.0 BP 170/104 H Blood Pressure Location Lt brachial Position Sitting Pulse 50 Pulse Source Pulse Oximeter Pulse Oximetry (%) 98 Oxygen Delivery Method Room Air Intake Visit Reasons: PE Range Operator: Not Required per policy Accompanied by: Self / Same As Patient Allergies No Known Allergies Allergy (Verified 03/20/23 16:52) Medication List - Last Reconciled 03/20/23 by Drew Lambert MD blood pressure monitor (Blood Pressure Kit) As directed mecobalamin (vitamin B12) 1,000 mcg sublingual BEDTIME sumatriptan succinate (Imitrex) 50 mg PO Q2-4H PRN Tobacco use date assessed: 09/26/22 Dental Screening Dental Screen Date: 03/20/23 Did you have a dental visit in the last 12 months?: Yes Did you have a dental problem in the last 6 months where you did not have access to dental care?: No Was dental information given to patient?: Patient has dentist HPI PE HPI Details 53-year-old obese female with hypercholesterolemia impaired glucose tolerance coming in for physical exam. Last seen in September 2022. Patient's colonoscopy is up-to-date September 2022 tubular adenoma . Mammogram is due this month. WETZEL yesterday and took OTC med - BP today high PFSH Medical History Sleep disorder breathing Vertigo Migraine Family history of colon cancer Vitamin B12 deficiency Annual physical exam Ovarian cyst Hypercholesterolemia Obesity (BMI 30-39.9) Surgical History Status post oophorectomy Hx of colonoscopy (~1999) History of left salpingo-oophorectomy History of dilatation and curettage Family History Father Colon cancer Mother Lymphoma Breast cancer Maternal Grandmother Lymphoma Social History (Updated 03/20/23 @ 17:19 by Drew Lambert MD) Housing: House Alcohol intake: current Alcohol intake frequency: holidays/special occasions only Patient Tobacco Use Status: Former Tobacco user e-Cigarette/Vaping Use: Never Used Second Hand Smoke Exposure: No Current occupational status: employed Cognitive needs: No Hearing needs: No Vision needs: Yes Questionnaire PHQ-9 Over the last 2 weeks, how often have you been bothered by any of the following problems? 1. Little interest or pleasure in doing things: not at all 2. Feeling down, depressed, or hopeless: not at all 3. Trouble falling or staying asleep, or sleeping too much: not at all 4. Feeling tired or having little energy: not at all 5. Poor appetite or overeating: not at all 6. Feeling bad about yourself - or that you are a failure or have let yourself or your family down: not at all 7. Trouble concentrating on things, such as reading the newspaper or watching television: not at all 8. Moving or speaking so slowly that other people could have noticed. Or the opposite - being so fidgety or restless that you have been moving around a lot more than usual: not at all 9. Thoughts that you would be better off or of hurting yourself in some way: not at all Total score: 0 Depression Screening Interpretation: Negative Depression Screening Done: Yes Source: Developed by Drs. Shadi Prieto, Venus Monsalve, Godwin Lock and colleagues, with an educational jose r from [employer]. Thrive Questionnaire Date Thrive assessed: 03/20/23 I am a: Patient What is your living situation today?: I have a steady place to live Within the past 12 months, did the food you bought not last and you didn't have the money to get more?: Never true Within the past 12 months, did you worry whether your food would run out before you got money to buy more?: Never true Do you have trouble paying for medicines?: No Do you have trouble getting transportation to medical appointments?: No Do you have trouble paying your heating and electricity bill?: No Do you have trouble taking care of your child, family member or friend?: No Do you have trouble with day-to-day activities such as bathing, preparing meals, shopping, managing finances, etc.?: No Are you currently unemployed and looking for a job?: No Are you interested in more education?: No Please select the resources that you would like help with: None AUDIT C Alcohol Use Questionnaire (AUDIT-C) 1. How often do you have a drink containing alcohol?: Monthly or less 2. How many drinks containing alcohol do you have on a typical day when you are drinking?: 1 or 2 3. How often do you have six or more drinks on one occasion?: Never Total Score: 1 FARZANEH-7 AMB Questionnaire FARZANEH-7 Date FARZANEH - 7 assessed: 09/26/22 Source: Developed by Drs. Shadi Prieto, Venus Monsalve, Godwin Lock and colleagues, with an educational jose r from [employer]. Review of Systems Const Denies poor appetite and Denies weakness Eyes Denies no additional complaints ENT Reports Normal hearing present, Denies dizziness, Denies nasal congestion, Denies tinnitus and Denies sore throat Card Denies chest pain, Denies syncope, Denies rapid heart rate and Denies dyspnea Resp Denies cough and Denies dyspnea GI Denies change in stool character, Reports constipation, Denies diarrhea, Denies nausea and Denies vomiting Denies urinary frequency, Denies difficulty voiding and Denies dysuria Neuro Reports Normal hearing present, Denies confusion, Denies dizziness, Denies syncope and Denies weakness Psych Denies confusion Physical exam (Primary Care) Vital Signs: Last Vital Signs Pulse 50 03/20/23 16:51 BP 170/104 H 03/20/23 16:51 Pulse Ox 98 03/20/23 16:51 Oxygen Delivery Method Room Air 03/20/23 16:51 BMI result Body Mass Index 32.0 Tobacco/Smoking Status: Tobacco use Status Tobacco use date assessed 09/26/22 03/20/23 16:57 Patient Tobacco Use Status Former Tobacco user 03/20/23 17:19 e-Cigarette/Vaping Use Never Used 03/20/23 17:19 PHQ-9: PHQ-9 Score PHQ-9: Total score 0 03/20/23 17:07 Depression Screening Interpretation: Negative Thrive Assessment: Date of Thrive Assessment Date Thrive assessed 03/20/23 03/20/23 16:57 Const General: No confusion Orientation/consciousness: No confusion HENMT Head: Yes normocephalic Ears: external ears normal and TM's normal bilaterally Face and sinus: Yes normal facial exam Mouth: moist mucous membranes Throat: Yes tonsils normal Eyes Conjunctivae: conjunctivae normal Pupils: Equal, round and reactive pupils present and Pupil accommodation reflex normal Direct Ophthalmoscopy: normal light reflex Neck Neck: No lymphadenopathy Thyroid: Thyroid normal Chest Chest palpation & inspection: normal inspection of the chest Resp Effort & Inspection: normal respiratory effort and no audible wheezes Auscultation: clear to auscultation bilaterally, no crackles, no wheezes and lung sounds not diminished Cardio Rate: regular rate Rhythm: regular rhythm Peripheral pulses: radial pulses present and dorsalis pedis present GI Palpation (GI): no masses Auscultation: normal bowel sounds and normoactive bowel sounds Rectal Exam - Female: deferred Skin General skin exam: no rashes or lesions noted Rashes: no rashes Neuro General: No confusion Cranial nerves: Yes Equal, round and reactive pupils present and Yes Normal hearing present Cognition (Neuro): normal cognition Gait exam (Neuro): Normal gait present Motor exam (neuro): 5/5 motor strength present throughout Deep tendon reflexes (DTR's): Right brachioradialis reflex intensity grade: 2+, Left brachioradialis reflex intensity grade: 2+, Right patellar reflex intensity grade: 2+ and Left patellar reflex intensity grade: 2+ Extrem General: No edema Office Procedures Flu Questionnaire Does the patient have a severe egg allergy?: No Does the patient have severe life threatening allergies?: No Does the patient have a fever or illness today?: No Has the patient ever had Guillain-Lewis Syndrome?: No Has the patient ever had any past reaction to a flu shot?: No Immunizations flu vacc [id number] 6mos up(PF) 60 mcg(15 mcgx4)/0.5 mL IM syringe Performing Provider: Drew Lambert MD Performing Location: [facility] Administered by: BASHIR Rivero on 03/20/23 17:44 Dose Route Admin Location Dispensed Lot Number Expiration Date NDC Molding Engineer 0.5 mL IM Left Deltoid 0.5 mL [id number] 11/12/23 [id number] [employer] VIS Given Date VIS Provided VIS Publication Date 03/20/23 Single Vaccine 20 Eligibility Eligibility Date Funding Source Not [facility] Eligible 03/20/23 Private Assessment and Plan Assessment & Plan (1) Annual physical exam: Code(s): Z00.00 - Encounter for general adult medical examination without abnormal findings (2) Obesity (BMI 30-39.9): Code(s): E66.9 - Obesity, unspecified Plan: Diet and exercise (3) Hypercholesterolemia: Code(s): E78.00 - Pure hypercholesterolemia, unspecified Plan: Avoid fried foods, chicken skin, eggs, butter margarine, pastries and meat. Be it pork or beef they have a lot of cholesterol LDL goal of less than 130 and triglyceride of less than 150 (4) Family history of colon cancer: Comment: Father in his early 50s survived colon cancer Code(s): Z80.0 - Family history of malignant neoplasm of digestive organs Plan: Colonoscopy just done September 2022 advised 1-2 years (5) Breast cancer screening by mammogram: Code(s): Z12.31 - Encounter for screening mammogram for malignant neoplasm of breast (6) Blood pressure elevated without history of HTN: Code(s): R03.0 - Elevated blood-pressure reading, without diagnosis of hypertension (7) Trigger finger of all digits of right hand: Code(s): M65.321 - Trigger finger, right index finger; M65.311 - Trigger thumb, right thumb; M65.331 - Trigger finger, right middle finger; M65.341 - Trigger finger, right ring finger; M65.351 - Trigger finger, right little finger Orders: Orders Vitamin D 25-OH Total Today R73.02 - Impaired glucose tolerance (oral) Influenza [id number] Immunization Today Z23 - Encounter for immunization Medications: New blood pressure monitor (Blood Pressure Kit) As directed 1 ea 0RF I10 - Essential (primary) hypertension, R03.0 - Elevated blood-pressure reading, without diagnosis of hypertension Refilled sumatriptan succinate (Imitrex) do not exceed 4 doses per 24 hrs 50 mg PO Q2-4H PRN 10 tabs 11RF migraine headache G43.909 - Migraine, unspecified, not intractable, without status migrainosus Coding Level of Care Code Est Pt Prev Care 40-64y(08095) Diagnoses Annual physical exam Z00.00 Obesity (BMI 30-39.9) E66.9 Hypercholesterolemia E78.00 Family history of colon cancer Z80.0 Breast cancer screening by mammogram Z12. Blood pressure elevated without history of HTN R03.0 Trigger finger of all digits of right hand M65.321; M65.311; M65.331; M65.341; M65.351
== END 2023-03-20 17:46 | disposition home or self-care (01) ==
PROVIDERS: Visit Provider Internal Medicine
DX: Z23 Encounter for immunization (principal); Z00.00 Encounter for general adult medical examination without abnormal findings; E66.9 Obesity, unspecified; Z68.32 Body mass index [BMI] 32.0-32.9, adult; E78.00 Pure hypercholesterolemia, unspecified
CPT/HCPCS: 90471; 90686; 99396

== ENCOUNTER 2023-04-17 07:24 | Outpatient (REF) | payer OTHER, SELFPAY | END 2023-04-17 07:25 | disposition home or self-care (01) | LOC: HO.MAMMO 07:24 | PROVIDERS: PCP Internal Medicine; Visit Provider Internal Medicine | DX: Z12.31 Encounter for screening mammogram for malignant neoplasm of breast (principal) | CPT/HCPCS: 77063; 77067 ==

== ENCOUNTER → 2023-04-17 07:30 | Outpatient (BNV) | payer OTHER, SELFPAY | PROVIDERS: PCP Internal Medicine; Visit Provider Radiology Diagnostic Radiology | DX: Z12.31 Encounter for screening mammogram for malignant neoplasm of breast (principal) | CPT/HCPCS: 77063; 77067 ==

== ENCOUNTER 2023-06-23 15:35 | Outpatient (AMB) | payer OTHER, SELFPAY ==
--- NOTE | 2023-06-23 15:44 | A.OFFPC_ITS ---
Vital Signs 06/23/23 15:46 Height 5 ft 6 in Weight 204 lb BMI 32.9 BP 162/100 H Blood Pressure Location Lt brachial Position Sitting Pulse 60 Pulse Source Pulse Oximeter Pulse Oximetry (%) 98 Oxygen Delivery Method Room Air Intake Visit Reasons: Blood pressure elevation [place] Printer Required: No Accompanied by: Self / Same As Patient Allergies No Known Allergies Allergy (Verified 06/23/23 15:49) Tobacco use date assessed: 09/26/22 HPI Blood pressure elevation HPI Details 53-year-old obese female with hyperchole sterolemia coming in for follow-up last seen in March 2023 noted to have an elevated blood pressure and is here for follow-up. Blood pressure machine showing 160s to 170s over 90 and so discussed with the patient the concern about the blood pressure. Patient is officially diagnosed as having hypertension patient also was supposed to have blood work done and she has not had. As for the trigger finger still bothering her and would like a referral to ortho. [facility] Medical History Sleep disorder breathing Vertigo Migraine Family history of colon cancer Vitamin B12 deficiency Annual physical exam Ovarian cyst Hypercholesterolemia Obesity (BMI 30-39.9) Surgical History Status post oophorectomy Hx of colonoscopy (~1999) History of left salpingo-oophorectomy History of dilatation and curettage Family History Father Colon cancer Mother Lymphoma Breast cancer Maternal Grandmother Lymphoma Social History Housing: House Alcohol intake: current Alcohol intake frequency: holidays/special occasions only Patient Tobacco Use Status: Former Tobacco user e-Cigarette/Vaping Use: Never Used Second Hand Smoke Exposure: No Current occupational status: employed Cognitive needs: No Hearing needs: No Vision needs: Yes Questionnaire PHQ-9 Over the last 2 weeks, how often have you been bothered by any of the following problems? 1. Little interest or pleasure in doing things: not at all 2. Feeling down, depressed, or hopeless: not at all 3. Trouble falling or staying asleep, or sleeping too much: not at all 4. Feeling tired or having little energy: not at all 5. Poor appetite or overeating: not at all 6. Feeling bad about yourself - or that you are a failure or have let yourself or your family down: not at all 7. Trouble concentrating on things, such as reading the newspaper or watching television: not at all 8. Moving or speaking so slowly that other people could have noticed. Or the opposite - being so fidgety or restless that you have been moving around a lot more than usual: not at all 9. Thoughts that you would be better off or of hurting yourself in some way: not at all Total score: 0 Depression Screening Interpretation: Negative Depression Screening Done: Yes 73705 - PHQ-9 Billing: Yes Source: Developed by Drs. Shadi Prieto, Venus Monsalve, Godwin Lock and colleagues, with an educational jose r from [employer]. Thrive Questionnaire Date Thrive assessed: 06/23/23 I am a: Patient What is your living situation today?: I have a steady place to live Within the past 12 months, did the food you bought not last and you didn't have the money to get more?: Never true Within the past 12 months, did you worry whether your food would run out before you got money to buy more?: Never true Do you have trouble paying for medicines?: No Do you have trouble getting transportation to medical appointments?: No Do you have trouble paying your heating and electricity bill?: No Do you have trouble taking care of your child, family member or friend?: No Do you have trouble with day-to-day activities such as bathing, preparing meals, shopping, managing finances, etc.?: No Are you currently unemployed and looking for a job?: No Are you interested in more education?: No Please select the resources that you would like help with: None Currently or been in a relationship where the following occur: no concerns reported THRIVE Score: 0 AUDIT C Alcohol Use Questionnaire (AUDIT-C) 1. How often do you have a drink containing alcohol?: Monthly or less 2. How many drinks containing alcohol do you have on a typical day when you are drinking?: 1 or 2 3. How often do you have six or more drinks on one occasion?: Never Total Score: 1 FARZANEH-7 AMB Questionnaire FARZANEH-7 Date FARZANEH - 7 assessed: 06/23/23 Feeling nervous, anxious, or on edge: 0 = Not at all Not being able to stop or control worryin = Not at all Worrying too much about different things: 0 = Not at all Trouble relaxin = Not at all Being so restless that it is hard to sit still: 0 = Not at all Becoming easily annoyed or irritable: 0 = Not at all Feeling afraid as if something awful might happen: 0 = Not at all Total FARZANEH-7 score (0-4 normal; 5-9 mild; 10-14 moderate; 15-21 severe): 0 Source: Developed by Drs. Shadi Prieto, Venus Monsalve, Godwin Lock and colleagues, with an educational jose r from [employer]. FARZANEH-7 Assessment Billing FARZANEH-7 Assessment Tool: FARZANEH-7 Assessment 26238 Physical exam (Primary Care) Vital Signs: Last Vital Signs Pulse 60 06/23/23 15:46 BP 162/100 H 06/23/23 15:46 Pulse Ox 98 06/23/23 15:46 Oxygen Delivery Method Room Air 06/23/23 15:46 BMI result Body Mass Index 32.9 Tobacco/Smoking Status: Tobacco use Status Tobacco use date assessed 09/26/22 06/23/23 15:51 Patient Tobacco Use Status Former Tobacco user 06/23/23 15:51 e-Cigarette/Vaping Use Never Used 06/23/23 15:51 PHQ-9: PHQ-9 Score PHQ-9: Total score 0 06/23/23 15:51 Depression Screening Interpretation: Negative Thrive Assessment: Date of Thrive Assessment Date Thrive assessed 06/23/23 06/23/23 15:51 Currently or been in a relationship where the following occur: no concerns reported Const General: alert; No acute distress Eyes Conjunctivae: conjunctivae normal Resp Auscultation: clear to auscultation bilaterally Cardio Rate: regular rate Rhythm: regular rhythm GI Inspection: Yes normal to inspection Extrem General: Yes normal to inspection and No edema Assessment and Plan Assessment & Plan (1) Blood pressure elevated without history of HTN: Code(s): R03.0 - Elevated blood-pressure reading, without diagnosis of hypertension (2) Obesity (BMI 30-39.9): Code(s): E66.9 - Obesity, unspecified Plan: Concern about the elevated blood pressure (3) Hypercholesterolemia: Code(s): E78.00 - Pure hypercholesterolemia, unspecified Plan: Avoid fried foods, chicken skin, eggs, butter margarine, pastries and meat. Be it pork or beef they have a lot of cholesterol LDL goal of less than 130 and triglyceride of less than 150 (4) Vitamin B12 deficiency: Code(s): E53.8 - Deficiency of other specified B group vitamins Plan: Continue vitamin B12 advised to get blood work (5) Hypertension: Code(s): I10 - Essential (primary) hypertension (6) Trigger finger, right index finger: Code(s): M65.321 - Trigger finger, right index finger Plan: referral to ortho Orders: Referrals Orthopedics Referral M65.321 - Trigger finger, right index finger Medications: New lisinopril 10 mg PO DAILY 30 tabs 3RF I10 - Essential (primary) hypertension Coding Level of Care Code Est Pt Level 4 (95923) Diagnoses Blood pressure elevated without history of HTN R03.0 Obesity (BMI 30-39.9) E66.9 Hypercholesterolemia E78.00 Vitamin B12 deficiency E53.8 Hypertension I10 Trigger finger, right index finger M65.321 Additional Codes FARZANEH-7 Assessment Billing - FARZANEH-7 Assessment Tool: FARZANEH-7 Assessment [id number] ([id number])
[2023-06-23 15:46] VITALS: BP 162/100; PULSE 60; O2SAT 98; BMI 32.9
== END 2023-06-23 16:20 | disposition home or self-care (01) ==
PROVIDERS: PCP Internal Medicine; Visit Provider Internal Medicine
DX: R03.0 Elevated blood-pressure reading, without diagnosis of hypertension (principal); E66.9 Obesity, unspecified; E78.00 Pure hypercholesterolemia, unspecified; Z68.32 Body mass index [BMI] 32.0-32.9, adult; E53.8 Deficiency of other specified B group vitamins; I10 Essential (primary) hypertension; M65.321 Trigger finger, right index finger
CPT/HCPCS: 99214

== ENCOUNTER 2023-07-19 07:44 | Outpatient (AMB) | payer OTHER, SELFPAY ==
--- NOTE | 2023-07-19 07:56 | MHC.OFFVIS ---
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 Patient reports that she has locking and catching of the right index finger for about 2 weeks now. She also explains that she has pins and needles in the 2nd & 3rd digits that radiates all the way up to the shoulder. She did try some finger splinting but only for a short period of time. 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 She states she has occasional locking and catching in her right index finger for about 2 weeks which is aggravated in the morning. She also experiences pins and needles sensation at the 2nd and 3rd digit which radiates up to her shoulder. She tried finger splinting in the past which provided her transient relief. 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 [facility] Medical History Sleep disorder breathing Vertigo Migraine Family history of colon cancer Vitamin B12 deficiency Annual physical exam Ovarian cyst Hypercholesterolemia Obesity (BMI 30-39.9) Surgical History Status post oophorectomy Hx of colonoscopy (~1999) History of left salpingo-oophorectomy History of dilatation and curettage Family History Father Colon cancer Mother Lymphoma Breast cancer Maternal Grandmother Lymphoma Social History Housing: House Alcohol intake: current Alcohol intake frequency: holidays/special occasions only Patient Tobacco Use Status: Former Tobacco user e-Cigarette/Vaping Use: Never Used Second Hand Smoke Exposure: No Current occupational status: employed Cognitive needs: No Hearing needs: No Vision needs: Yes Review of Systems Const All systems reviewed & are unremarkable except as noted in HPI and below Physical Exam Const General: cooperative, healthy appearing, comfortable, no acute distress, well developed and alert Orientation/consciousness: patient oriented x3 HEENT Head: Yes normal to inspection, Yes normocephalic and Yes atraumatic Eyes General: appearance normal, both eyes and all related structures Resp Effort & Inspection: normal respiratory effort and able to speak in complete sentences Cardio Rate: regular rate Peripheral pulses: Peripheral pulses 2+ throughout GI Palpation (GI): Soft to palpation Skin Lesions: no lesions Rashes: no rashes Neuro General: patient oriented x3 Extrem Other: Right index finger: Tender nodule along the A1 rafal with active catching and locking. NVI. Right wrist: Normal to inspection. Tenderness over the carpal canal. Numbness and tingling over the median nerve distribution of the right hand. Able to make a full fist and fully extend all fingers. Negative Tinel's. Assessment & Plan Assessment & Plan (1) Trigger finger, right index finger: Code(s): M65.321 - Trigger finger, right index finger (2) Carpal tunnel syndrome on right: Code(s): G56.01 - Carpal tunnel syndrome, right upper limb Plan We discussed options which include conservative vs surgical intervention. At this time, she would like to proceed with conservative management which include a Velcro wrist splint and a night splint for her finger. If symptoms persist or worsens, patient will contact the office to discuss EMG nerve conduction study and possible trigger finger release for her right index finger. All questions were answered today and she is content with this plan. Medications: New ibuprofen 800 mg PO Q8H PRN 90 tabs 3RF pain 30 days S52.209D - Unspecified fracture of shaft of unspecified ulna, subsequent encounter for closed fracture with routine healing Patient Instructions: Scribed for Orquidea Cody PA-C, by Esau Rivera medical esthetician, on 07/19/2023 at 8:00 AM EST. I, Orquidea Cody PA-C, have personally reviewed and agree with the information entered by the scribe. Coding Level of Care Code New Pt Level 3 (38063) Diagnoses Trigger finger, right index finger M65.321 Carpal tunnel syndrome on right G56.01
== END 2023-07-19 08:24 | disposition home or self-care (01) ==
PROVIDERS: PCP Internal Medicine; Visit Provider Physician Assistant
DX: M65.321 Trigger finger, right index finger (principal); G56.01 Carpal tunnel syndrome, right upper limb
CPT/HCPCS: 99203

== ENCOUNTER → 2023-07-19 07:44 | Outpatient (BNVA) | payer OTHER, SELFPAY | PROVIDERS: PCP Internal Medicine; Visit Provider Physician Assistant ==

== ENCOUNTER 2023-07-19 08:29 | Outpatient (REF) | payer OTHER, SELFPAY ==
[2023-07-19 10:20] LABS: MANUAL DIFF FLAG NO
[2023-07-19 10:24] LABS: Basophils Absolute Auto 0.1 X10*3/uL (0.0-0.2); Basophils Percent Auto 0.6 % (0-2); Eosinophils Absolute Auto 0.3 X10*3/uL (0.0-0.4); Eosinophils Percent Auto 3.4 % (0-4); Hemoglobin 14.6 g/dl (12.0-16.0); Imm Gran Abs Auto 0.02 X10*3/uL (0.00-0.03); Imm Gran Pct Auto 0.3 % (0.0-0.4); Lymphocytes Absolute Auto 1.7 X10*3/uL (1.2-4.9); Lymphocytes Percent Auto 21.5 % (20-40); Mean Corpuscular HGB Conc 32.4 g/dl (31.0-35.0); Mean Corpuscular Hemoglobin 28.2 pg (27.0-33.0); Mean Platelet Volume 10.6 fL (9.4-12.3); Monocytes Absolute Auto 0.5 X10*3/uL (0.1-1.2); Monocytes Percent Auto 6.6 % (2-11); Neutrophils Absolute Auto 5.3 x10*3/uL (2.0-8.3); Neutrophils Percent Auto 67.6 % (45-73); Platelet Count 290 X10*3/uL (160-400); Red Blood Count 5.17 X10*6/uL (4.20-5.50); White Blood Count 7.9 X10*3/uL (4.8-10.8)
[2023-07-19 11:00] LABS: Alanine Aminotransferase 12 U/L (0-31); Albumin Level 4.2 g/dL (3.5-5.0); Alkaline Phosphatase 85 U/L (39-117); Anion Gap 11 (12-20); Aspartate Amino Transferase 17 U/L (5-31); Bilirubin Total 0.8 mg/dL (0.0-1.0); Blood Urea Nitrogen 12 mg/dL (9-16); Calcium 9.6 mg/dL (8.4-10.2); Carbon Dioxide 30 mmol/L (22-29); Chloride 104 mmol/L (96-108); Cholesterol 224 mg/dL (<200); Estimated Glomerular Filt Rate > 60; Glucose Random 103 mg/dL (60-115); HDL Cholesterol 59 mg/dL (>40); LDL Cholesterol Calculated 143 mg/dL (<100); Magnesium 2.2 mg/dL (1.6-2.6); Phosphorus 3.9 mg/dL (2.7-4.5); Sodium 141 mmol/L (135-145); Triglycerides 111 mg/dL (<150)
[2023-07-19 11:17] LABS: Free T4 (Free Thyroxine) 0.87 ng/dL (0.71-1.85)
== END 2023-07-19 08:30 | disposition home or self-care (01) ==
LOC: HO.10HDL 08:29
PROVIDERS: Visit Provider Internal Medicine
DX: I49.9 Cardiac arrhythmia, unspecified (principal); R73.02 Impaired glucose tolerance (oral); E78.00 Pure hypercholesterolemia, unspecified; E53.8 Deficiency of other specified B group vitamins
CPT/HCPCS: 36415; 80053; 80061; 82306; 83735; 84100; 84439; 84443; 85025

== ENCOUNTER 2023-08-09 15:39 | Outpatient (AMB) | payer OTHER, SELFPAY ==
[2023-08-09 15:41] VITALS: BP 132/68; PULSE 62; BMI 34.2
--- NOTE | 2023-08-09 15:41 | A.OFFVIS_ITS ---
Vital Signs 08/09/23 15:41 Height 5 ft 6 in Weight 212 lb 1.355 oz BMI 34.2 BP 132/68 Blood Pressure Location Rt brachial Position Sitting Pulse 62 Intake Visit Reasons: n/s last appointment looking to F/U Intake Note: Patient returns to in office visit today in follow up to discuss colonoscopy. CC: Patient reports occasional epigastric pain. Denies other GI symptoms today. Director Integrated Required: No Accompanied by: Self / Same As Patient Allergies No Known Allergies Allergy (Verified 08/09/23 15:47) HPI HPI n/s last appointment looking to F/U: Details: Assessment & Plan (1) Tubulovillous adenoma: ?Code(s): D36.9 - Benign neoplasm, unspecified site ?Plan: She denies any new medical problems since we last saw her. During the last procedure she discovered that mixing the prep with lemonade helped her tremendously in tolerating it and completing it. She is not currently having any trouble with her bowels and her swallowing since the last EGD and dilation continues to be improved.? She will have occasional episodes of food sticking but is not nearly as severe as it was and she finds is quite manageable.? She does not feel we need to repeat the endoscopy.? She denies any problems with anesthesia or sedation.? She denies any cardiac or respiratory problems.? There are no infectious disease problems.? Again she had multiple polyps 1 of which was a tubulovillous adenoma 1 year ago in July of 2020. (2) Family history of colon cancer: ?Comment: Father in his early 50s survived colon cancer ?Code(s): Z80.0 - Family history of malignant neoplasm of digestive organs ? ? ? Medications: New peg 3350-electrolytes 236-22.74-6.74 -5.86 gram (Golytely) ?? until fecal effluent is clear; do not exceed a total volume of 2,000 mL 240 mL? PO Q10M 1 day 4,000 mL 0RF Z12.11 - Encounter for screening for malignant neoplasm of colon COLONOSCOPY 09/30/22 Findings: Terminal Ileum: Not evaluated Cecum:? Normal Ascending Colon:? A 10 -12 mm sessile polyp in the distal ascending colon - removed with a hot snare Transverse Colon:? A 3 cms flat polyp at 75 - 80 cms.? Polyp was raised with 5 cc of Eleview and removed piecemeal with a hot snare.? Polypectomy site was closed with a hemoclip and marked by Wandy Ink A 2nd 2.5 cms polyp at 60 cms.? Polyp was raised with 3 cc of Eleview and removed piecemeal with a hot snare. Polypectomy site was marked with Wandy ink Descending Colon:? Normal Sigmoid Colon:? Two 8 to 12 mm sessile polyps - removed with a hot snare. Moderate diverticulosis Rectum:? Normal Ano-rectum:? Moderate internal hemorrhoids Colon preparation:? Good after some irrigation Impression and Post Procedure Diagnosis: Colonoscopy Findings: Four medium to large sized polyps removed Moderate diverticulosis seen in the sigmoid colon Moderate hemorrhoids on retroflexed exam. Plan: Await pathology results Patient has an appointment on 10/18/22 in the [facility] with Sindi Saldaña NP. Repeat Colonoscopy interval based on path results - in 1-2 years if polyps are adenomatous and due to a hx of multiple colon polyps in the past Above findings were reviewed with the patient and colon polyps handout was given in the discharge area BIOPSY Received: 09/30/22 Diagnosis A.? Colon, ascending, polyp:? Tubular adenoma; negative for high-grade dysplasia and carcinoma.? B.? Colon, transverse at 80 cm, polyps:? Sessile serrated lesions/polyps without dysplasia (multiple pieces involved).? C.? Colon, at 60 cm, polyp:? Sessile serrated lesion/polyp without dysplasia. D.? Colon, sigmoid, polyp:? Tubular adenoma (1 piece); negative for high-grade dysplasia and carcinoma, and sessile serrated lesion/polyp without dysplasia (1 piece); endoscopic correlation is necessary.. TODAY'S VISIT The procedure needs to be repeated in 1-2 years so will bring her back in 8 months since split the difference. She had trouble because the prep did not want to stay down. She had Go lytely. We will see if we can do a different prep next time, she also had the same problem with Miralax prep. The procedure was well tolerated. The results were explained and the patient is agreeable to the follow-up interval as stated. The bowel pattern has returned to normal. Education was provided to tell any 1st degree relatives about their findings to be sure that they are screened by age 45. Educated that they will be put on a recall list when it is time for their repeat scope but should they move out of state or away from the hospital they will need to remember along with their primary to repeat the procedure in a timely fashion to avoid any adverse complications. Her swallowing continues to be good after her esophageal dilation. The only thing she has trouble swallowing on occasion is rice which she remembers her mother also had trouble swallowing so she simply tries to keep water near during meals and is cautious when she eats this. ROV 8 mos and then decide if needs another EGD and schedule/order colonoscopy. She may be eligible for Sutab so will check this at that time. [facility] Medical History (Updated 09/01/23 @ 08:55 by JUAN Figueroa) Blood pressure elevated without history of HTN Breast cancer screening by mammogram Arrhythmia Annual physical exam Impaired glucose tolerance Gastrointestinal multiple polyposis syndrome Abscess of right earlobe Sleep disorder breathing Vertigo Migraine Family history of colon cancer Vitamin B12 deficiency Annual physical exam Ovarian cyst Hypercholesterolemia Obesity (BMI 30-39.9) Surgical History Status post oophorectomy Hx of colonoscopy (~1999) History of left salpingo-oophorectomy History of dilatation and curettage Family History Father Colon cancer Mother Lymphoma Breast cancer Maternal Grandmother Lymphoma Social History Housing: House Alcohol intake: current Alcohol intake frequency: holidays/special occasions only Patient Tobacco Use Status: Former Tobacco user e-Cigarette/Vaping Use: Never Used Second Hand Smoke Exposure: No Current occupational status: employed Cognitive needs: No Hearing needs: No Vision needs: Yes Review of Systems Const Denies fatigue, Denies fever(s), Denies night sweats, Denies poor appetite and Denies weight loss ENT Reports Normal hearing present, Denies dental pain, Denies dysphagia, Denies hearing loss, Denies mouth pain, Denies odynophagia, Denies throat swelling, Denies tongue swelling and Reports other (Dentition adequate) Card Reports no additional complaints Resp Reports no additional complaints GI Details: Denies abdominal pain, Denies melena, Denies bloating, Denies hematochezia, Denies constipation, Denies GI cramping, Denies dysphagia, Denies excessive flatus, Denies early satiety, Denies heartburn, Denies diarrhea, Denies nausea, Denies odynophagia, Denies vomiting and Denies hematemesis Skin/Breast Denies pruritus, Denies lesions, Denies rash and Denies jaundice Neuro Reports Normal hearing present and Denies Abnormal speech present Endo Denies fatigue Aller/Immun Denies throat swelling and Denies tongue swelling Physical Exam Vital Signs: Last Vital Signs Pulse 62 08/09/23 15:41 BP 132/68 08/09/23 15:41 BMI result Body Mass Index 34.2 Const General: cooperative, no acute distress, well developed and well groomed Nutritional Appearance: well nourished and obese Orientation/consciousness: oriented to person, oriented to place and oriented to time Limitations: No language barrier HEENT Head: Yes normocephalic and Yes atraumatic Eyes General: appearance normal, both eyes and all related structures Pupils: Equal, round and reactive pupils present Neck Neck: Yes normal visual inspection and Yes no lymphadenopathy Thyroid: Thyroid normal Resp Effort & Inspection: normal respiratory effort and able to speak in complete sentences Auscultation: clear to auscultation bilaterally Cardio Rate: regular rate Rhythm: regular rhythm Heart sounds: Normal, physiologic split S2 sound present Peripheral pulses: radial pulses present and posterior tibial pulses present GI Inspection: No distended, No Abdominal panniculus present and Yes obesity Palpation (GI): Soft to palpation, nontender, no guarding, not rigid and No hepatosplenomegaly present Percussion: Yes normal to percussion Auscultation: normal bowel sounds Rectal Exam - Female: deferred Skin General skin exam: no rashes or lesions noted, turgor normal, skin not dry, no jaundice, No spider nevi and no striae Rashes: no rashes Nails: normal Neuro General: oriented to person, oriented to place and oriented to time Cranial nerves: Yes Equal, round and reactive pupils present and Yes Normal hearing present Speech: No Abnormal speech present Extrem General: Yes normal to inspection, No clubbing, No cyanosis and No edema Psych Appearance: grossly normal and well kempt Mental Status: mental status grossly normal Speech and movement: Normal speech and movement present Affect: normal affect Attitude: cooperative Thought process: Normal thought process present and not confabulating Thought content: Normal thought content present Insight: Fair insight present (Psych) Judgement: Fair judgement present (Psych) Results Reviewed Results Reviewed: COLONOSCOPY 09/30/22 Findings: Terminal Ileum: Not evaluated Cecum:? Normal Ascending Colon:? A 10 -12 mm sessile polyp in the distal ascending colon - removed with a hot snare Transverse Colon:? A 3 cms flat polyp at 75 - 80 cms.? Polyp was raised with 5 cc of Eleview and removed piecemeal with a hot snare.? Polypectomy site was closed with a hemoclip and marked by Wandy Ink A 2nd 2.5 cms polyp at 60 cms.? Polyp was raised with 3 cc of Eleview and removed piecemeal with a hot snare. Polypectomy site was marked with Wandy ink Descending Colon:? Normal Sigmoid Colon:? Two 8 to 12 mm sessile polyps - removed with a hot snare. Moderate diverticulosis Rectum:? Normal Ano-rectum:? Moderate internal hemorrhoids Colon preparation:? Good after some irrigation Impression and Post Procedure Diagnosis: Colonoscopy Findings: Four medium to large sized polyps removed Moderate diverticulosis seen in the sigmoid colon Moderate hemorrhoids on retroflexed exam. Plan: Await pathology results Patient has an appointment on 10/18/22 in the GI Clinic with Sindi Saldaña NP. Repeat Colonoscopy interval based on path results - in 1-2 years if polyps are adenomatous and due to a hx of multiple colon polyps in the past Above findings were reviewed with the patient and colon polyps handout was given in the discharge area BIOPSY Received: 09/30/22 Diagnosis A.? Colon, ascending, polyp:? Tubular adenoma; negative for high-grade dysplasia and carcinoma.? B.? Colon, transverse at 80 cm, polyps:? Sessile serrated lesions/polyps without dysplasia (multiple pieces involved).? C.? Colon, at 60 cm, polyp:? Sessile serrated lesion/polyp without dysplasia. D.? Colon, sigmoid, polyp:? Tubular adenoma (1 piece); negative for high-grade dysplasia and carcinoma, and sessile serrated lesion/polyp without dysplasia (1 piece); endoscopic correlation is necessary.. Assessment & Plan Assessment & Plan (1) Multiple adenomatous polyps: Comment: 09/2022= 4 polyps to greater than a cm repeat in 2 years, 2020 scope= 1 tubulovillous adenoma and multiple polyposis repeat in 1 year Code(s): D36.9 - Benign neoplasm, unspecified site Category: Medical (2) Dysphagia: Comment: Improved with esophageal dilation 2020 EGD; No clear findings on EGD 2020 except spasm we will wait and watch and consider if smooth muscle relaxer may be initiated Code(s): R13.10 - Dysphagia, unspecified Category: Medical (3) Tubulovillous adenoma: Comment: 2020 scope= 1 TA along with multiple polyposis repeat in 1 year Code(s): D36.9 - Benign neoplasm, unspecified site Category: Medical (4) Family history of colon cancer: Comment: Father in his early 50s survived colon cancer Code(s): Z80.0 - Family history of malignant neoplasm of digestive organs Category: Medical Plan The procedure needs to be repeated in 1-2 years so will bring her back in 8 months since split the difference. She had trouble because the prep did not want to stay down. She had Go lytely. We will see if we can do a different prep next time, she also had the same problem with Miralax prep. The procedure was well tolerated. The results were explained and the patient is agreeable to the follow-up interval as stated. The bowel pattern has returned to normal. Education was provided to tell any 1st degree relatives about their findings to be sure that they are screened by age 45. Educated that they will be put on a recall list when it is time for their repeat scope but should they move out of state or away from the hospital they will need to remember along with their primary to repeat the procedure in a timely fashion to avoid any adverse complications. Her swallowing continues to be good after her esophageal dilation. The only thing she has trouble swallowing on occasion is rice which she remembers her mother also had trouble swallowing so she simply tries to keep water near during meals and is cautious when she eats this. ROV 8 mos and then decide if needs another EGD and schedule/order colonoscopy. She may be eligible for Sutab so will check this at that time.
== END 2023-08-09 16:25 | disposition home or self-care (01) ==
PROVIDERS: PCP Internal Medicine; Visit Provider Nurse Practitioner
DX: D36.9 Benign neoplasm, unspecified site (principal); R13.10 Dysphagia, unspecified; Z80.0 Family history of malignant neoplasm of digestive organs
CPT/HCPCS: 99213

== ENCOUNTER → 2023-08-09 15:39 | Outpatient (BNVA) | payer OTHER, SELFPAY | PROVIDERS: PCP Internal Medicine; Visit Provider Nurse Practitioner ==

== ENCOUNTER 2023-09-11 15:42 | Outpatient (AMB) | payer OTHER, SELFPAY ==
[2023-09-11 15:43] VITALS: BP 112/78; PULSE 51; BMI 33.6
--- NOTE | 2023-09-11 15:43 | A.OFFPC_ITS ---
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 Zackary cihldress's colonoscopy up-to-date September 2022 mammogram up-to-date April 2023 review of the notes seen gastroenterology this month advised repeat testing in 1 year patient did see orthopedics also for the trigger finger conservative management. had a cough -walk in [place], no fevers, , no sore thrato, no wheezing dicsussed concern on lisinopril. will refill tessalon perles. if persist chest xray, stop lisinopril(IF) PFS Medical History (Updated 09/11/23 @ 16:04 by Drew Lambert MD) Cough Right ventricular dilation Tubulovillous adenoma Dysphagia Trigger finger of all digits of right hand Blood pressure elevated without history of HTN Breast cancer screening by mammogram Arrhythmia Annual physical exam Impaired glucose tolerance Gastrointestinal multiple polyposis syndrome Abscess of right earlobe Sleep disorder breathing Vertigo Migraine Family history of colon cancer Vitamin B12 deficiency Annual physical exam Ovarian cyst Hypercholesterolemia Obesity (BMI 30-39.9) Surgical History Status post oophorectomy Hx of colonoscopy (~1999) History of left salpingo-oophorectomy History of dilatation and curettage Family History Father Colon cancer Mother Lymphoma Breast cancer Maternal Grandmother Lymphoma Social History Housing: House Alcohol intake: current Alcohol intake frequency: holidays/special occasions only Patient Tobacco Use Status: Former Tobacco user e-Cigarette/Vaping Use: Never Used Second Hand Smoke Exposure: No Current occupational status: employed Cognitive needs: No Hearing needs: No Vision needs: Yes Questionnaire PHQ-9 Over the last 2 weeks, how often have you been bothered by any of the following problems? 1. Little interest or pleasure in doing things: not at all 2. Feeling down, depressed, or hopeless: not at all 3. Trouble falling or staying asleep, or sleeping too much: not at all 4. Feeling tired or having little energy: not at all 5. Poor appetite or overeating: not at all 6. Feeling bad about yourself - or that you are a failure or have let yourself or your family down: not at all 7. Trouble concentrating on things, such as reading the newspaper or watching television: not at all 8. Moving or speaking so slowly that other people could have noticed. Or the opposite - being so fidgety or restless that you have been moving around a lot more than usual: not at all 9. Thoughts that you would be better off or of hurting yourself in some way: not at all Total score: 0 Depression Screening Interpretation: Negative Depression Screening Done: Yes 38800 - PHQ-9 Billing: Yes Source: Developed by Drs. Shadi Prieto, Venus Monsalve, Godwin Lock and colleagues, with an educational jose r from [employer]. Thrive Questionnaire Date Thrive assessed: 06/23/23 AUDIT C Alcohol Use Questionnaire (AUDIT-C) 1. How often do you have a drink containing alcohol?: Monthly or less 2. How many drinks containing alcohol do you have on a typical day when you are drinking?: 1 or 2 3. How often do you have six or more drinks on one occasion?: Never Total Score: 1 FARZANEH-7 AMB Questionnaire FARZANEH-7 Date FARZANEH - 7 assessed: 06/23/23 Source: Developed by Drs. Shadi Prieto, Venus Monsalve, Godwin Lock and colleagues, with an educational jose r from [employer]. Physical exam (Primary Care) Vital Signs: Last Vital Signs Pulse 51 09/11/23 15:43 BP 112/78 09/11/23 15:43 Oxygen Delivery Method Room Air 09/11/23 15:43 BMI result Body Mass Index 33.6 Tobacco/Smoking Status: Tobacco use Status Tobacco use date assessed 09/11/23 09/11/23 15:48 Patient Tobacco Use Status Former Tobacco user 09/11/23 15:48 e-Cigarette/Vaping Use Never Used 09/11/23 15:48 PHQ-9: PHQ-9 Score PHQ-9: Total score 0 09/11/23 15:48 Depression Screening Interpretation: Negative Thrive Assessment: Date of Thrive Assessment Date Thrive assessed 06/23/23 09/11/23 15:48 Const General: alert; No acute distress Eyes Conjunctivae: conjunctivae normal Resp Auscultation: clear to auscultation bilaterally Cardio Rate: regular rate Rhythm: regular rhythm GI Inspection: Yes normal to inspection Extrem General: Yes normal to inspection and No edema Assessment and Plan Assessment & Plan (1) Impaired fasting glucose: Code(s): R73.01 - Impaired fasting glucose Plan: Decrease the amount of carbohydrate intake, pasta, bread, rice and potatoes are all sugar and that is aside from all the sweet stuff, remember that fruits are good but they are Sweet also. (2) Vitamin D deficiency: Code(s): E55.9 - Vitamin D deficiency, unspecified Plan: Vitamin-D 8022-9410 units once a day (3) Trigger finger, right index finger: Code(s): M65.321 - Trigger finger, right index finger Plan: Patient has met with Orthopedics and planned conservative management. (4) Hypertension: Code(s): I10 - Essential (primary) hypertension Plan: Continue with blood pressure medication. Decrease salt intake and exercise presently on lisinopril 10 mg once a day (5) Obesity (BMI 30-39.9): Code(s): E66.9 - Obesity, unspecified Plan: Diet and exercise (6) Cough: Code(s): R05.9 - Cough, unspecified Orders: Orders Vitamin B12 and Folate Today E53.8 - Deficiency of other specified B group vitamins Medications: New benzonatate 100 mg PO BID-TID PRN 30 caps 0RF cough R05.9 - Cough, unspecified Coding Level of Care Code Est Pt Level 4 (59876) Diagnoses Impaired fasting glucose R73.01 Vitamin D deficiency E55.9 Trigger finger, right index finger M65.321 Hypertension I10 Obesity (BMI 30-39.9) E66.9 Cough R05.9
== END 2023-09-11 16:10 | disposition home or self-care (01) ==
PROVIDERS: PCP Internal Medicine; Visit Provider Internal Medicine
DX: R73.01 Impaired fasting glucose (principal); E66.9 Obesity, unspecified; Z68.33 Body mass index [BMI] 33.0-33.9, adult; E55.9 Vitamin D deficiency, unspecified; M65.321 Trigger finger, right index finger; I10 Essential (primary) hypertension; R05.9 Cough, unspecified
CPT/HCPCS: 99214

== ENCOUNTER 2024-04-04 14:49 | Outpatient (AMB) | payer OTHER, SELFPAY ==
[2024-04-04 14:54] VITALS: BP 122/76; PULSE 54; O2SAT 96; BMI 34.2
--- NOTE | 2024-04-04 14:54 | MHC.PC.OV ---
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 Accompanied by: Self / Same As Patient Allergies No Known Allergies Allergy (Verified 04/04/24 14:55) Medication List - Last Reconciled 04/04/24 by Drew Lambert MD blood pressure monitor (Blood Pressure Kit) As directed ibuprofen 800 mg PO Q8H PRN 30 days lisinopril 10 mg PO DAILY mecobalamin (vitamin B12) 1,000 mcg sublingual BEDTIME sumatriptan succinate (Imitrex) 50 mg PO Q2-4H PRN Tobacco use date assessed: 04/04/24 Dental Screening Dental Screen Date: 04/04/24 Did you have a dental visit in the last 12 months?: Yes Did you have a dental problem in the last 6 months where you did not have access to dental care?: No Was dental information given to patient?: Patient has dentist HPI pe HPI Details 54-year-old obese female with a history of migraine hypercholesterolemia history of nonsustained ventricular tachycardia, hypertension impaired glucose tolerance coming in for physical exam last seen in August 2023. Patient had colonoscopy done 2022 mammogram is due next month [facility] Medical History (Updated 04/04/24 @ 15:11 by Drew Lambert MD) Annual physical exam Cough Right ventricular dilation Tubulovillous adenoma Dysphagia Trigger finger of all digits of right hand Blood pressure elevated without history of HTN Breast cancer screening by mammogram Arrhythmia Impaired glucose tolerance Gastrointestinal multiple polyposis syndrome Abscess of right earlobe Sleep disorder breathing Vertigo Migraine Family history of colon cancer Vitamin B12 deficiency Annual physical exam Ovarian cyst Hypercholesterolemia Obesity (BMI 30-39.9) Surgical History Status post oophorectomy Hx of colonoscopy (~1999) History of left salpingo-oophorectomy History of dilatation and curettage Family History Father Colon cancer Mother Lymphoma Breast cancer Maternal Grandmother Lymphoma Social History (Updated 04/04/24 @ 15:17 by Drew Lambert MD) Housing: House Alcohol intake: current Alcohol intake frequency: holidays/special occasions only Comment: once a month 2 drinks Patient Tobacco Use Status: Former Tobacco user e-Cigarette/Vaping Use: Never Used Second Hand Smoke Exposure: No Current occupational status: employed Cognitive needs: No Hearing needs: No Vision needs: Yes Questionnaire PHQ-9 Over the last 2 weeks, how often have you been bothered by any of the following problems? 1. Little interest or pleasure in doing things: not at all 2. Feeling down, depressed, or hopeless: not at all 3. Trouble falling or staying asleep, or sleeping too much: not at all 4. Feeling tired or having little energy: several days 5. Poor appetite or overeating: not at all 6. Feeling bad about yourself - or that you are a failure or have let yourself or your family down: not at all 7. Trouble concentrating on things, such as reading the newspaper or watching television: not at all 8. Moving or speaking so slowly that other people could have noticed. Or the opposite - being so fidgety or restless that you have been moving around a lot more than usual: not at all 9. Thoughts that you would be better off or of hurting yourself in some way: not at all Total score: 1 Source: Developed by Drs. Shadi Prieto, Venus Monsalve, Godwin Lock and colleagues, with an educational jose r from [employer]. Thrive Questionnaire Date Thrive assessed: 04/04/24 I am a: Patient What is your living situation today?: I have a steady place to live Within the past 12 months, did the food you bought not last and you didn't have the money to get more?: Never true Within the past 12 months, did you worry whether your food would run out before you got money to buy more?: Never true Do you have trouble paying for medicines?: No Do you have trouble getting transportation to medical appointments?: No Do you have trouble paying your heating and electricity bill?: No Do you have trouble taking care of your child, family member or friend?: No Do you have trouble with day-to-day activities such as bathing, preparing meals, shopping, managing finances, etc.?: No Are you currently unemployed and looking for a job?: No Are you interested in more education?: No Please select the resources that you would like help with: None Currently or been in a relationship where the following occur: No concerns reported THRIVE Score: 0 AUDIT C Alcohol Use Questionnaire (AUDIT-C) 1. How often do you have a drink containing alcohol?: Monthly or less 2. How many drinks containing alcohol do you have on a typical day when you are drinking?: 1 or 2 3. How often do you have six or more drinks on one occasion?: Never Total Score: 1 FARZANEH-7 AMB Questionnaire FARZANEH-7 Date FARZANEH - 7 assessed: 04/04/24 Feeling nervous, anxious, or on edge: 0 = Not at all Not being able to stop or control worryin = Not at all Worrying too much about different things: 0 = Not at all Trouble relaxin = Not at all Being so restless that it is hard to sit still: 0 = Not at all Becoming easily annoyed or irritable: 1 = Several days Feeling afraid as if something awful might happen: 0 = Not at all Total FARZANEH-7 score (0-4 normal; 5-9 mild; 10-14 moderate; 15-21 severe): 1 Source: Developed by Drs. Shadi Prieto, Venus Monsalve, Godwin Lock and colleagues, with an educational jose r from [employer]. Review of Systems Const Denies poor appetite and Denies weakness Eyes Denies no additional complaints ENT Reports Normal hearing present, Denies dizziness, Denies nasal congestion, Denies tinnitus and Denies sore throat Card Denies chest pain, Denies syncope, Denies rapid heart rate and Denies dyspnea Resp Denies cough and Denies dyspnea GI Denies change in stool character, Reports constipation, Denies diarrhea, Denies nausea and Denies vomiting Denies urinary frequency, Denies difficulty voiding and Denies dysuria Neuro Reports Normal hearing present, Denies confusion, Denies dizziness, Denies syncope and Denies weakness Psych Denies confusion Physical exam (Primary Care) Vital Signs: Last Vital Signs Pulse 54 04/04/24 14:54 BP 122/76 04/04/24 14:54 Pulse Ox 96 04/04/24 14:54 Oxygen Delivery Method Room Air 04/04/24 14:54 BMI result Body Mass Index 34.2 Tobacco/Smoking Status: Tobacco use Status Tobacco use date assessed 04/04/24 04/04/24 15:00 Patient Tobacco Use Status Former Tobacco user 04/04/24 15:17 e-Cigarette/Vaping Use Never Used 04/04/24 15:17 PHQ-9: PHQ-9 Score PHQ-9: Total score 1 04/04/24 15:11 Thrive Assessment: Date of Thrive Assessment Date Thrive assessed 04/04/24 04/04/24 15:00 Currently or been in a relationship where the following occur: No concerns reported Const General: No confusion Orientation/consciousness: No confusion HENMT Head: Yes normocephalic Ears: external ears normal and TM's normal bilaterally Face and sinus: Yes normal facial exam Mouth: moist mucous membranes Throat: Yes tonsils normal Eyes Conjunctivae: conjunctivae normal Pupils: Equal, round and reactive pupils present and Pupil accommodation reflex normal Direct Ophthalmoscopy: normal light reflex Neck Neck: No lymphadenopathy Thyroid: Thyroid normal Chest Chest palpation & inspection: normal inspection of the chest Resp Effort & Inspection: normal respiratory effort and no audible wheezes Auscultation: clear to auscultation bilaterally, no crackles, no wheezes and lung sounds not diminished Cardio Rate: regular rate Rhythm: regular rhythm Peripheral pulses: radial pulses present and dorsalis pedis present GI Palpation (GI): no masses Auscultation: normal bowel sounds and normoactive bowel sounds Rectal Exam - Female: deferred Skin General skin exam: no rashes or lesions noted Rashes: no rashes Neuro General: No confusion Cranial nerves: Yes Equal, round and reactive pupils present and Yes Normal hearing present Cognition (Neuro): normal cognition Gait exam (Neuro): Normal gait present Motor exam (neuro): 5/5 motor strength present throughout Deep tendon reflexes (DTR's): Right brachioradialis reflex intensity grade: 2+, Left brachioradialis reflex intensity grade: 2+, Right patellar reflex intensity grade: 2+ and Left patellar reflex intensity grade: 2+ Extrem General: No edema Office Procedures Flu Questionnaire Does the patient have a severe egg allergy?: No Does the patient have severe life threatening allergies?: No Does the patient have a fever or illness today?: No Has the patient ever had Guillain-Rochester Syndrome?: No Has the patient ever had any past reaction to a flu shot?: No Immunizations Fluarix Triv [id number] (PF) 45 mcg (15 mcg x 3)/0.5 mL IM syringe Performing Provider: Drew Lambert MD [facility] Administered by: LIANET Crabtree on 04/04/24 15:35 Dose Route Admin Location Dispensed Lot Number Expiration Date NDC Marine Pilot 0.5 mL IM Left Deltoid 0.5 mL [id number] 11/11/24 [id number] ADmantX VIS Given Date VIS Provided VIS Publication Date 04/04/24 Single Vaccine 20 Eligibility Eligibility Date Funding Source Not [facility] Eligible 04/04/24 Private Coding Level of Care Code Est Pt Prev Care 40-64y(25312) Diagnoses Impaired fasting glucose R73.01 Annual physical exam Z00.00 Obesity (BMI 30-39.9) E66.9 Hypercholesterolemia E78.00 Vitamin D deficiency E55.9 Multiple adenomatous polyps D36.9 Primary hypertension I10 Hypertension type: primary hypertension Assessment & Plan Assessment & Plan (1) Impaired fasting glucose: Code(s): R73.01 - Impaired fasting glucose Category: Medical Plan: Decrease the amount of carbohydrate intake, pasta, bread, rice and potatoes are all sugar and that is aside from all the sweet stuff, remember that fruits are good but they are Sweet also. (2) Annual physical exam: Code(s): Z00.00 - Encounter for general adult medical examination without abnormal findings Category: Medical Plan: Patient is advised to eat healthy, keep well hydrated, keep active and have adequate sleep. (3) Obesity (BMI 30-39.9): Code(s): E66.9 - Obesity, unspecified Category: Medical Plan: Diet and exercise (4) Hypercholesterolemia: Code(s): E78.00 - Pure hypercholesterolemia, unspecified Category: Medical Plan: Avoid fried foods, chicken skin, eggs, butter margarine, pastries and meat. Be it pork or beef they have a lot of cholesterol LDL goal of less than 130 and triglyceride of less than 150. Diet controlled (5) Vitamin D deficiency: Code(s): E55.9 - Vitamin D deficiency, unspecified Category: Medical Plan: vitamin-D 4519-5594 units once a day (6) Multiple adenomatous polyps: Comment: 09/2022= 4 polyps to greater than a cm repeat in 2 years, 2020 scope= 1 tubulovillous adenoma and multiple polyposis repeat in 1 year Code(s): D36.9 - Benign neoplasm, unspecified site Category: Medical Plan: patient continues to follow-up with Gastroenterology. scheduled April 2024 (7) Hypertension: Code(s): I10 - Essential (primary) hypertension Category: Medical Qualifiers: Hypertension type: primary hypertension Qualified Code(s): I10 - Essential (primary) hypertension Plan: Continue with blood pressure medication. Decrease salt intake and exercise on lisinopril 10 mg once a day Orders: Orders Comprehensive Met. Panel Today R73.01 - Impaired fasting glucose Lipid Panel Today E78.00 - Pure hypercholesterolemia, unspecified Free T4 (Free Thyroxine) Today E78.00 - Pure hypercholesterolemia, unspecified Vitamin D 25-OH Total Today E78.00 - Pure hypercholesterolemia, unspecified Hemoglobin A1c Today R73.01 - Impaired fasting glucose Complete Blood Count Auto Diff Today E78.00 - Pure hypercholesterolemia, unspecified Thyroid Stimulating Hormone Today E78.00 - Pure hypercholesterolemia, unspecified Vitamin B12 and Folate Today E78.00 - Pure hypercholesterolemia, unspecified Influenza [id number] Immunization Today Z23 - Encounter for immunization Medications: New Fluarix Triv [id number] (PF) (flu vacc [id number] 6mos up(PF)) 0.5 mL IM ONCE 0.5 mL 0RF NS Z23 - Encounter for immunization
== END 2024-04-04 15:40 | disposition home or self-care (01) ==
PROVIDERS: PCP Internal Medicine; Visit Provider Internal Medicine
DX: Z00.00 Encounter for general adult medical examination without abnormal findings (principal); R73.01 Impaired fasting glucose; E66.9 Obesity, unspecified; Z68.34 Body mass index [BMI] 34.0-34.9, adult; E78.00 Pure hypercholesterolemia, unspecified; E55.9 Vitamin D deficiency, unspecified; D36.9 Benign neoplasm, unspecified site; I10 Essential (primary) hypertension

== ENCOUNTER → 2024-04-04 14:49 | Outpatient (BNVA) | payer OTHER, SELFPAY | PROVIDERS: PCP Internal Medicine; Visit Provider Internal Medicine | DX: Z00.00 Encounter for general adult medical examination without abnormal findings (principal); Z23 Encounter for immunization; R73.01 Impaired fasting glucose; E66.9 Obesity, unspecified; Z68.34 Body mass index [BMI] 34.0-34.9, adult; E78.00 Pure hypercholesterolemia, unspecified; E55.9 Vitamin D deficiency, unspecified; I10 Essential (primary) hypertension; Z86.0101 Personal history of adenomatous and serrated colon polyps | CPT/HCPCS: 90471; 90656; 96127 ==

== ENCOUNTER 2024-04-22 07:43 | Outpatient (REF) | payer OTHER, SELFPAY ==
--- NOTE | ~2024-04-22 | MM_ITS ---
EXAMINATION: MM SCREENING DIGITAL BREAST TOMOSYNTHESIS, BILATERAL CLINICAL INFORMATION: Screening. Asymptomatic. COMPARISON: Mammography: Comparison is made with available priors TECHNIQUE: Digital breast mammography with tomosynthesis is performed in both the craniocaudal and mediolateral oblique views along with computer-aided detection (CAD). FINDINGS: The breasts are heterogeneously dense, which may obscure small masses (ACR BI-RADS breast composition Category c). There are no significant masses, abnormal calcifications, or other abnormalities. MM/MM tomosynthesis screening BI IMPRESSION: No mammographic evidence of malignancy. ASSESSMENT: BI-RADS BI-RADS 1 - Negative RECOMMENDATION: Routine annual mammography screening. 1 year F/U This examination should not preclude the clinical evaluation of a suspicious palpable abnormality. This patient's information was entered into a reminder system with a target due date for their next mammogram. Electronically signed by: Judy Adrian DO 04/26/2024 01:19 PM EMERSON
== END 2024-04-22 07:44 | disposition home or self-care (01) ==
LOC: HO.MAMMO 07:43
PROVIDERS: PCP Internal Medicine; Visit Provider Internal Medicine
DX: Z12.31 Encounter for screening mammogram for malignant neoplasm of breast (principal)
CPT/HCPCS: 77063; 77067

== ENCOUNTER → 2024-04-22 07:45 | Outpatient (BNV) | payer OTHER, SELFPAY | PROVIDERS: PCP Internal Medicine; Visit Provider Internal Medicine | DX: Z12.31 Encounter for screening mammogram for malignant neoplasm of breast (principal) | CPT/HCPCS: 77063; 77067 ==

== ENCOUNTER 2024-04-26 07:30 | Day surgery (SDC) | payer OTHER, SELFPAY ==
[2024-04-24 13:31] VITALS: BMI 34.2
--- NOTE | 2024-04-25 10:41 | P.CONAN_ITS ---
Documented by User: Adamaris Walter NP 04/25/24 10:43 HPI - Anesthesia Eval Consult details Narrative: 54yo F for Colonoscopy PMFSH Active Problems Active Problems: All Active Problems Vitamin D deficiency (Acute) Impaired fasting glucose (Acute) Multiple adenomatous polyps (Acute) Carpal tunnel syndrome on right (Acute) Trigger finger, right index finger (Acute) Hypertension (Acute) NSVT (nonsustained ventricular tachycardia) (Acute) Annual physical exam (Acute) Plantar fasciitis of left foot (Acute) Cough (Acute) Obesity (BMI 30-39.9) (Acute) Hypercholesterolemia (Acute) Vitamin B12 deficiency (Acute) Family history of colon cancer (Acute) Migraine (Acute) Past Medical History Medical History NSVT (nonsustained ventricular tachycardia) Cough Trigger finger of all digits of right hand Blood pressure elevated without history of HTN Breast cancer screening by mammogram Right ventricular dilation Sleep disorder breathing Arrhythmia Vertigo Impaired glucose tolerance Gastrointestinal multiple polyposis syndrome Tubulovillous adenoma Abscess of right earlobe Migraine Dysphagia Family history of colon cancer Vitamin B12 deficiency Ovarian cyst Hypercholesterolemia Obesity (BMI 30-39.9) Family History Family History Father Colon cancer Mother Lymphoma Breast cancer Maternal Grandmother Lymphoma Family history of problems with anesthesia: No Surgical History Surgical History Status post oophorectomy Hx of colonoscopy (~1999) History of left salpingo-oophorectomy History of dilatation and curettage History of Problems with Anesthesia: No Social History Social History Housing: House Are you a primary pediatric acute care unit nurse to a significant other at home: No Do you presently have visiting nurse or other home services: No Alcohol intake: current Alcohol intake frequency: holidays/special occasions only Comment: once a month 2 drinks Patient Tobacco Use Status: Former Tobacco user e-Cigarette/Vaping Use: Never Used Second Hand Smoke Exposure: No Use of substances other than those prescribed or required for medical reasons: No Have you been hit, kicked, punched, or otherwise hurt by someone within the past year? If so, by whom?: No Are you DNR?: No Advance Directives: No Advance Directives Information Provided: Yes Recently lost weight without trying: No Current occupational status: employed Cognitive needs: No Hearing needs: No Vision needs: Yes Meds Allergies Allergy/AdvReac Type Severity Reaction Status Date / Time No Known Allergies Allergy Verified 04/04/24 14:55 Home Medications ?Medication ?Instructions ?Recorded ?Confirmed ?Last Taken ?Type mecobalamin (vitamin B12) 1,000 1,000 mcg sublingual BEDTIME 03/15/21 04/24/24 Unknown History mcg disintegrating tablet,sublingual Exam Height,Weight and Vital Signs: Height 5 ft 6 in Weight 96.162 kg Narrative Narrative: Exercise Stress 2022 Protocol: WILFRED Max HR: 169 BPM 101% of Pred: 167 BPM Max BP: 186/092 mmHG Max Work Load: 9.3 METS Exercise stress trest using Wilfred protocol, total of 7 min 31 sec. METS 9.30 and TAPHR up to 101 %. Pt tolerated bwell denies CP, mild SOB that resolved in recovery. EKG with PVC and occ PAC's without any ischemic changes. Normotensive response to exercise. Test reviewed with Dr. Reddy. Assessment and Plan Assessment Anesthesia Assessment: Chart Reviewed Final Anesthetic Review Family History of Problems with Anesthesia: No History of Problems with Anesthesia: No Documented by User: Abi Ochoa MD 04/26/24 08:15 [facility] Past Medical History Medical History NSVT (nonsustained ventricular tachycardia) Cough Trigger finger of all digits of right hand Blood pressure elevated without history of HTN Breast cancer screening by mammogram Right ventricular dilation Sleep disorder breathing Arrhythmia Vertigo Impaired glucose tolerance Gastrointestinal multiple polyposis syndrome Tubulovillous adenoma Abscess of right earlobe Migraine Dysphagia Family history of colon cancer Vitamin B12 deficiency Ovarian cyst Hypercholesterolemia Obesity (BMI 30-39.9) Family History Family History Father Colon cancer Mother Lymphoma Breast cancer Maternal Grandmother Lymphoma Surgical History Surgical History Status post oophorectomy Hx of colonoscopy (~1999) History of left salpingo-oophorectomy History of dilatation and curettage Social History Social History Housing: House Are you a primary pediatric acute care unit nurse to a significant other at home: No Do you presently have visiting nurse or other home services: No Alcohol intake: current Alcohol intake frequency: holidays/special occasions only Comment: once a month 2 drinks Patient Tobacco Use Status: Former Tobacco user e-Cigarette/Vaping Use: Never Used Second Hand Smoke Exposure: No Use of substances other than those prescribed or required for medical reasons: No Have you been hit, kicked, punched, or otherwise hurt by someone within the past year? If so, by whom?: No Are you DNR?: No Advance Directives: No Advance Directives Information Provided: Yes Recently lost weight without trying: No Current occupational status: employed Cognitive needs: No Hearing needs: No Vision needs: Yes Meds Allergies Allergy/AdvReac Type Severity Reaction Status Date / Time No Known Allergies Allergy Verified 04/04/24 14:55 Home Medications ?Medication ?Instructions ?Recorded ?Confirmed ?Last Taken ?Type mecobalamin (vitamin B12) 1,000 1,000 mcg sublingual BEDTIME 03/15/21 04/24/24 Unknown History mcg disintegrating tablet,sublingual Exam Airway Mallampati Class: II TM Dist: >3cm Neck ROM: Full Heart: rrr Lungs: cta Assessment and Plan Assessment Anesthesia Assessment: Anesthesia Plan Discussed Final Anesthetic Review NPO: Yes ASA Class: III Final Preanesthetic Review: No Changes in Pt Med Stat, Meds/Allgs Chart Reviewed, Consent Obtained/Reviewed and Anes Risks/Benef Reviewed Patient Risk: Intermediate Anesthetic Plan Anesthetic Plan: MAC: Disposition: Standard PACU
--- NOTE | 2024-04-26 07:26 | P.HPSUR_ITS ---
Pre-Procedural Eval Section A - 24 Hr Update-Section A only Date of Service: 04/26/24 The patient is an INPATIENT: No The patient has been examined within 24 hours of the surgical procedure. The History & Physical has been completed within 30 days and I have reviewed it.: No Section B - Complete if H&P > 30 days Chief Complaint: Surveillance of colon polyps Relevant Family History (Specify if Yes): Yes Relevant Social History: Tobacco Use (Former smoker) Present Medications: see Short Stay Collaborative assessment Medical History: Significant History (Impaired glucose tolerance Gastrointestinal multiple polyposis syndrome Abscess of right earlobe Sleep disorder breathing Vertigo Migraine Family history of colon cancer Vitamin B12 deficiency Annual physical exam Ovarian cyst Hypercholesterolemia Obesity (BMI 30-39.9)) History of Previous Operations: Relevant previous surgery/procedure and date(s) (Status post oophorectomy Hx of colonoscopy (~1999) History of left salpingo- oophorectomy History of dilatation and curettage) Allergies: Allergies Allergy/AdvReac Type Severity Reaction Status Date / Time No Known Allergies Allergy Verified 04/04/24 14:55 Review of Systems Sugical H&P ROS: Negative: Constitution, Cardiovascular, Respiratory and Gastrointestinal Exam Surgical H&P Exam: Normal: Heart, Normal: Lungs, Normal: Extremities and Normal: Abdomen Plan Diagnosis/Plan: Unchanged I have reviewed the history and physical and performed a pertinent physical examination on my patient. No changes have occurred unless specified. Time Spent With Patient Time: Total time managing care of this patient today ____ minutes.
[2024-04-26 07:53] VITALS: BP 137/84; PULSE 66; RESP 16; TEMP 36.6; O2SAT 96; BMI 33.6
[2024-04-26] MEDS: Lactated Ringers 1,000 ML 100 ML IVCONT (08:08)
[2024-04-26] MEDS: Sodium Phosphate,Mono-Dibasic 133 ML ENEMA PR (08:12)
--- NOTE | 2024-04-26 09:21 | HO.OPN-COLON ---
Colonoscopy Operative Note Operative Note Date of Service: 04/26/24 Narrative: COLONOSCOPY TILL CECUM WITH SNARE POLYPECTOMY Pre-op diagnosis: Surveillance for colon polyps. Post-op diagnosis:? Colon polyps, Diverticulosis, hemorrhoids Endoscopist:? Clifford Marquez MD Anesthesia:?MAC Consent: Indications for the procedure and potential complications of bleeding, perforation, reaction to medications and missed diagnosis were discussed with the patient and informed consent was obtained. Instrument: Olympus PCF H 190 L variable stiffness pediatric colonoscope Monitoring: Vital signs and clinical assessment, intermittent blood pressure monitoring, continuous EKG monitoring, Pulse oximetry and Carbon Dioxide monitoring were done throughout the procedure. Please see anesthesia flowsheet. Colon withdrawl time was 25 minutes. Procedure: The patient was placed in the left lateral decubitis position and pre-procedure medications were administered. After a digital rectal examination of the ano-rectum, the video colonoscope was inserted into the rectum and advanced through the colon to the cecum. The colonoscope was slowly withdrawn in a retrograde panoramic fashion and the colon mucosa was carefully examined including a retroflexed view of the rectum. Findings and interventions are described below. Procedure Difficulty: LLQ pressure was applied to intubate the cecum Findings: Terminal Ileum: Not evaluated Cecum: Normal Ascending Colon: Normal Transverse Colon: A 3-4 mm sessile polyp - removed with a cold snare. Polypectomy sites visualized at 60 and 90 cms without recurrent/residual polyp Descending Colon: Normal Sigmoid Colon: A 15 mm sessile polyp - removed with a hot snare. A 4-5 mm sessile polyp - removed with a cold snare. Moderate diverticulosis Rectum: A 10 mm sessile polyp - removed with a hot snare. A 6-7 mm sessile polyp - removed with a cold snare. Some bleeding noted at polypectomy site - controlled with cautery using the snare tip Ano-rectum: Small internal hemorrhoids Colon preparation: Good after copious irrigation. [place] Bowel Preparation Scale Right colon; 2 Transverse colon: 2 Left colon; 2 (0 = Unprepared colon segment with mucosa not seen due to solid stool that cannot be cleared. 1 = Portion of mucosa of the colon segment seen, but other areas of the colon segment not well seen due to staining, residual stool and/or opaque liquid. 2 = Minor amount of residual staining, small fragments of stool and/or opaque liquid, but mucosa of colon segment seen well. 3 = Entire mucosa of colon segment seen well with no residual staining, small fragments of stool or opaque liquid) Impression and Post Procedure Diagnosis: Colonoscopy Findings: Three small and two medium sized polyps were removed Moderate diverticulosis seen in the sigmoid colon small hemorrhoids on retroflexed exam. Plan: Pt has a FU appointment on 05/17/24 with Sindi Saldaña NP. Repeat Colonoscopy in 3 years if polyps are adenomatous and due to a history of multiple colon polyps. Above findings were reviewed with the patient and relevant handouts were given and the discharge area.
[2024-04-26 09:25] VITALS: BP 115/58; PULSE 73; RESP 20; TEMP 36.6
[2024-04-26 09:38] VITALS: BP 109/49; PULSE 80; RESP 16; TEMP 36.6; O2SAT 98
== END 2024-04-26 10:15 | disposition home or self-care (01) ==
PROVIDERS: PCP Internal Medicine; Visit Provider Internal Medicine Gastroenterology
PROC: 0DJD8ZZ Inspection of Lower Intestinal Tract, Via Natural or Artificial Opening Endoscopic (ICD-10-PCS; CPT 45378; principal; 2024-04-26 08:30)
DX: Z12.11 Encounter for screening for malignant neoplasm of colon (principal); Z86.0101 Personal history of adenomatous and serrated colon polyps; Z80.0 Family history of malignant neoplasm of digestive organs; D12.3 Benign neoplasm of transverse colon; D12.5 Benign neoplasm of sigmoid colon; D12.8 Benign neoplasm of rectum; K57.30 Diverticulosis of large intestine without perforation or abscess without bleeding; K64.8 Other hemorrhoids; I10 Essential (primary) hypertension; R73.02 Impaired glucose tolerance (oral); E53.8 Deficiency of other specified B group vitamins; G43.909 Migraine, unspecified, not intractable, without status migrainosus; R42 Dizziness and giddiness; E66.9 Obesity, unspecified; Z68.34 Body mass index [BMI] 34.0-34.9, adult; Z79.899 Other long term (current) drug therapy; Z98.890 Other specified postprocedural states; Z87.891 Personal history of nicotine dependence
CPT/HCPCS: 45385; 88305; J2003; J2704

== ENCOUNTER → 2024-04-26 07:30 | Outpatient (BNV) | payer OTHER, SELFPAY | PROVIDERS: PCP Internal Medicine; Visit Provider Internal Medicine Gastroenterology | DX: Z12.11 Encounter for screening for malignant neoplasm of colon (principal); Z86.0100 Personal history of colon polyps, unspecified; D12.3 Benign neoplasm of transverse colon; D12.8 Benign neoplasm of rectum | CPT/HCPCS: 45385 ==

== ENCOUNTER 2024-05-17 08:58 | Outpatient (AMB) | payer OTHER, SELFPAY ==
[2024-05-17 09:03] VITALS: BP 135/77; PULSE 56; BMI 34.0
--- NOTE | 2024-05-17 09:03 | MHC.OFFVIS ---
Vital Signs 05/17/24 09:03 Height 5 ft 6 in Weight 210 lb 12.191 oz BMI 34.0 BP 135/77 Blood Pressure Location Lt brachial Position Sitting Pulse 56 Intake Visit Reasons: s/p colon Intake Note: Patient in office today in follow up s/p colonoscopy. CC: Per patient she is doing well and denies having any GI concerns today. 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 Accompanied by: Self / Same As Patient Allergies No Known Allergies Allergy (Verified 05/17/24 09:12) HPI HPI s/p colon: Details: Assessment & Plan (1) Multiple adenomatous polyps: Comment: 09/2022= 4 polyps to greater than a cm repeat in 2 years, 2020 scope= 1 tubulovillous adenoma and multiple polyposis repeat in 1 year Code(s): D36.9 - Benign neoplasm, unspecified site Category: Medical (2) Dysphagia: Comment: Improved with esophageal dilation 2020 EGD; No clear findings on EGD 2020 except spasm we will wait and watch and consider if smooth muscle relaxer may be initiated Code(s): R13.10 - Dysphagia, unspecified Category: Medical (3) Tubulovillous adenoma: Comment: 2020 scope= 1 TA along with multiple polyposis repeat in 1 year Code(s): D36.9 - Benign neoplasm, unspecified site Category: Medical (4) Family history of colon cancer: Comment: Father in his early 50s survived colon cancer Code(s): Z80.0 - Family history of malignant neoplasm of digestive organs Category: Medical Plan The procedure needs to be repeated in 1-2 years so will bring her back in 8 months since split the difference. She had trouble because the prep did not want to stay down. She had Go lytely. We will see if we can do a different prep next time, she also had the same problem with Miralax prep. The procedure was well tolerated. The results were explained and the patient is agreeable to the follow-up interval as stated. The bowel pattern has returned to normal. Education was provided to tell any 1st degree relatives about their findings to be sure that they are screened by age 45. Educated that they will be put on a recall list when it is time for their repeat scope but should they move out of state or away from the hospital they will need to remember along with their primary to repeat the procedure in a timely fashion to avoid any adverse complications. Her swallowing continues to be good after her esophageal dilation. The only thing she has trouble swallowing on occasion is rice which she remembers her mother also had trouble swallowing so she simply tries to keep water near during meals and is cautious when she eats this. ROV 8 mos and then decide if needs another EGD and schedule/order colonoscopy. She may be eligible for Sutab so will check this at that time. COLONOSCOPY 04/26/24 Findings: Terminal Ileum: Not evaluated Cecum: Normal Ascending Colon: Normal Transverse Colon: A 3-4 mm sessile polyp - removed with a cold snare. Polypectomy sites visualized at 60 and 90 cms without recurrent/residual polyp Descending Colon: Normal Sigmoid Colon: A 15 mm sessile polyp - removed with a hot snare. A 4-5 mm sessile polyp - removed with a cold snare. Moderate diverticulosis Rectum: A 10 mm sessile polyp - removed with a hot snare. A 6-7 mm sessile polyp - removed with a cold snare. Some bleeding noted at polypectomy site - controlled with cautery using the snare tip Ano-rectum: Small internal hemorrhoids Colon preparation: Good after copious irrigation. Impression and Post Procedure Diagnosis: Colonoscopy Findings: Three small and two medium sized polyps were removed Moderate diverticulosis seen in the sigmoid colon small hemorrhoids on retroflexed exam. Plan: Pt has a FU appointment on 05/17/24 with Sindi Saldaña NP. Repeat Colonoscopy in 3 years if polyps are adenomatous and due to a history of multiple colon polyps. Received: 04/26/24 Diagnosis A. Colon, transverse, polyp: Tubular adenoma; negative for high-grade dysplasia and carcinoma. B. Colon, sigmoid, polyps: Sessile serrated lesion/polyp without dysplasia and hyperplastic polyps. C. Colon, rectal polyps: Tubular adenoma, one; negative for high-grade dysplasia and carcinoma, and hyperplastic polyp, one. TODAYS VISIT She ended up using the Miralax prep as insurance denies the Sutab. The procedure was well tolerated. The results were explained and the patient is agreeable to the follow-up interval as stated. The bowel pattern has returned to normal. Education was provided to tell any 1st degree relatives about their findings to be sure that they are screened by age 45. Educated that they will be put on a recall list when it is time for their repeat scope but should they move out of state or away from the hospital they will need to remember along with their primary to repeat the procedure in a timely fashion to avoid any adverse complications. [facility] Medical History NSVT (nonsustained ventricular tachycardia) Cough Trigger finger of all digits of right hand Blood pressure elevated without history of HTN Breast cancer screening by mammogram Right ventricular dilation Sleep disorder breathing Arrhythmia Vertigo Impaired glucose tolerance Gastrointestinal multiple polyposis syndrome Tubulovillous adenoma Abscess of right earlobe Migraine Dysphagia Family history of colon cancer Vitamin B12 deficiency Ovarian cyst Hypercholesterolemia Obesity (BMI 30-39.9) Surgical History Status post oophorectomy Hx of colonoscopy (~1999) History of left salpingo-oophorectomy History of dilatation and curettage Family History Father Colon cancer Mother Lymphoma Breast cancer Maternal Grandmother Lymphoma Social History Housing: House Are you a primary care management associate to a significant other at home: No Do you presently have visiting nurse or other home services: No Alcohol intake: current Alcohol intake frequency: holidays/special occasions only Comment: once a month 2 drinks Patient Tobacco Use Status: Former Tobacco user e-Cigarette/Vaping Use: Never Used Second Hand Smoke Exposure: No Current occupational status: employed Cognitive needs: No Hearing needs: No Vision needs: Yes Review of Systems Const Denies fatigue, Denies fever(s), Denies night sweats, Denies poor appetite and Denies weight loss Eyes Details: glasses Reports requires corrective lenses ENT Reports Normal hearing present, Denies dental pain, Denies dysphagia, Denies hearing loss, Denies mouth pain, Denies odynophagia, Denies throat swelling, Denies tongue swelling and Reports other (Dentition adequate) Card Reports no additional complaints Resp Reports no additional complaints GI Details: Denies abdominal pain, Denies melena, Denies bloating, Denies hematochezia, Denies constipation, Denies GI cramping, Denies dysphagia, Denies excessive flatus, Denies early satiety, Denies heartburn, Denies diarrhea, Denies nausea, Denies odynophagia, Denies vomiting and Denies hematemesis Skin/Breast Denies pruritus, Denies lesions, Denies rash and Denies jaundice Neuro Reports Normal hearing present and Denies Abnormal speech present Endo Denies fatigue Aller/Immun Denies throat swelling and Denies tongue swelling Physical Exam Vital Signs: BMI result Body Mass Index 34.0 Const General: cooperative, no acute distress, well developed and well groomed Nutritional Appearance: well nourished and obese Orientation/consciousness: oriented to person, oriented to place and oriented to time Limitations: No language barrier HEENT Head: Yes normocephalic and Yes atraumatic Eyes General: appearance normal, both eyes and all related structures Pupils: Equal, round and reactive pupils present Neck Neck: Yes normal visual inspection and Yes no lymphadenopathy Thyroid: Thyroid normal Resp Effort & Inspection: normal respiratory effort and able to speak in complete sentences Auscultation: clear to auscultation bilaterally Cardio Rate: regular rate Rhythm: regular rhythm Heart sounds: Normal, physiologic split S2 sound present Peripheral pulses: radial pulses present and posterior tibial pulses present GI Inspection: No distended, No Abdominal panniculus present and Yes obesity Palpation (GI): Soft to palpation, nontender, no guarding, not rigid and No hepatosplenomegaly present Percussion: Yes normal to percussion Auscultation: normal bowel sounds Rectal Exam - Female: deferred Skin General skin exam: no rashes or lesions noted, turgor normal, skin not dry, no jaundice, No spider nevi and no striae Rashes: no rashes Nails: normal Neuro General: oriented to person, oriented to place and oriented to time Cranial nerves: Yes Equal, round and reactive pupils present and Yes Normal hearing present Speech: No Abnormal speech present Extrem General: Yes normal to inspection, No clubbing, No cyanosis and No edema Psych Appearance: grossly normal and well kempt Mental Status: mental status grossly normal Speech and movement: Normal speech and movement present Affect: normal affect Attitude: cooperative Thought process: Normal thought process present and not confabulating Thought content: Normal thought content present Insight: Good insight present (Psych) Judgement: Good judgement present (Psych) Assessment & Plan Assessment & Plan (1) Multiple adenomatous polyps: Comment: \04/2024 = 3 TA's repeat in 3 years; 09/2022= 4 polyps to greater than a cm repeat in 2 years, 2020 scope= 1 tubulovillous adenoma and multiple polyposis repeat in 1 year Code(s): D36.9 - Benign neoplasm, unspecified site Category: Medical Plan She ended up using the Miralax prep as insurance denies the Sutab. The procedure was well tolerated. The results were explained and the patient is agreeable to the follow-up interval as stated. The bowel pattern has returned to normal. Education was provided to tell any 1st degree relatives about their findings to be sure that they are screened by age 45. Educated that they will be put on a recall list when it is time for their repeat scope but should they move out of state or away from the hospital they will need to remember along with their primary to repeat the procedure in a timely fashion to avoid any adverse complications. Coding Level of Care Code Est Pt Level 3 (57530) Diagnoses Multiple adenomatous polyps D36.9
== END 2024-05-17 09:23 | disposition home or self-care (01) ==
PROVIDERS: PCP Internal Medicine; Visit Provider Nurse Practitioner
DX: D36.9 Benign neoplasm, unspecified site (principal)
CPT/HCPCS: 99213

== ENCOUNTER 2024-09-17 08:04 | Outpatient (AMB) | payer OTHER, SELFPAY ==
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
[2024-09-17 08:46] VITALS: BP 120/82; PULSE 52; O2SAT 98
== END 2024-09-17 09:14 | disposition home or self-care (01) ==
PROVIDERS: PCP Internal Medicine; Visit Provider Internal Medicine
DX: M25.562 Pain in left knee (principal); S83.422A Sprain of lateral collateral ligament of left knee, initial encounter; S89.92XA Unspecified injury of left lower leg, initial encounter; M23.92 Unspecified internal derangement of left knee

== ENCOUNTER → 2024-09-17 08:04 | Outpatient (BNVA) | payer OTHER, SELFPAY | PROVIDERS: PCP Internal Medicine; Visit Provider Internal Medicine ==

== ENCOUNTER 2024-10-30 14:52 | Outpatient (AMB) | payer OTHER, SELFPAY ==
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
[2024-10-30 15:25] VITALS: BMI 33.9
== END 2024-10-30 15:32 | disposition home or self-care (01) ==
LOC: HO.HOS 14:52
PROVIDERS: PCP Internal Medicine; Visit Provider Physician Assistant
DX: S83.422A Sprain of lateral collateral ligament of left knee, initial encounter (principal); M23.92 Unspecified internal derangement of left knee; S80.02XA Contusion of left knee, initial encounter
CPT/HCPCS: 99213; G2211

== ENCOUNTER 2024-10-30 15:06 | Outpatient (REF) | payer OTHER, SELFPAY ==
--- NOTE | ~2024-10-30 | XR_ITS ---
EXAMINATION: XR KNEE, LEFT CLINICAL INFORMATION: M25.562 - Pain in left knee COMPARISON: None available. TECHNIQUE: AP view in standing positions both knees. Lateral and sunrise view left knee.. FINDINGS: There is joint space narrowing involving the medial compartments with sclerosis along the articular surface of the medial tibial plateau both knees. No acute cortical disruption or gross malalignment. No lytic or blastic lesions. No suprapatellar bursa joint effusion, left knee. XR/XR knee LT 3V IMPRESSION: Mild to moderate medial compartment osteoarthrosis, both knees. Electronically signed by: Red Soliz MD 10/30/2024 03:35 PM EDT
== END 2024-10-30 15:07 | disposition home or self-care (01) ==
LOC: HO.HOSX 15:06
PROVIDERS: PCP Internal Medicine; Visit Provider Physician Assistant
DX: M25.562 Pain in left knee (principal)
CPT/HCPCS: 73562

== ENCOUNTER → 2024-10-30 15:10 | Outpatient (BNV) | payer OTHER, SELFPAY | PROVIDERS: PCP Internal Medicine; Visit Provider Radiology Diagnostic Radiology | DX: M17.0 Bilateral primary osteoarthritis of knee (principal) | CPT/HCPCS: 73562 ==

== ENCOUNTER 2024-11-11 07:25 | Outpatient (REF) | payer OTHER, SELFPAY ==
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
== END 2024-11-11 07:26 | disposition home or self-care (01) ==
LOC: HO.MRI 07:25
PROVIDERS: PCP Internal Medicine; Visit Provider Physician Assistant
DX: M17.12 Unilateral primary osteoarthritis, left knee (principal)
CPT/HCPCS: 73721

== ENCOUNTER → 2024-11-11 07:30 | Outpatient (BNV) | payer OTHER, SELFPAY | PROVIDERS: PCP Internal Medicine; Visit Provider Radiology Diagnostic Radiology | DX: M17.12 Unilateral primary osteoarthritis, left knee (principal) | CPT/HCPCS: 73721 ==

== ENCOUNTER 2024-12-05 15:25 | Outpatient (AMB) | payer OTHER, SELFPAY ==
--- NOTE | 2024-12-05 15:25 | A.OFFVIS_ITS ---
Vital Signs 12/05/24 15:33 Height 5 ft 6 in Weight 210 lb BMI 33.9 Intake Visit Reasons: TH-Left Knee MRI Review 11/11/2024 Intake Note: Follow up left knee MRI Allergies No Known Allergies Allergy (Verified 12/05/24 15:33) HPI HPI TH-Left Knee MRI Review 11/11/2024: Details: 54 year old female presents for telehealth visit left knee MRI review. She states her symptoms have slightly improved and has no concerns today. 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 Abscess of right earlobe Migraine Dysphagia Family history of colon cancer Vitamin B12 deficiency Ovarian cyst Hypercholesterolemia Obesity (BMI 30-39.9) Surgical History Status post oophorectomy Hx of colonoscopy (~1999) History of left salpingo-oophorectomy History of dilatation and curettage Family History Father Colon cancer Mother Lymphoma Breast cancer Maternal Grandmother Lymphoma Social History (Updated 10/30/24 @ 15:36 by LIANET Bey) Housing: House Are you a primary patient care specialist to a significant other at home: No Do you presently have visiting nurse or other home services: No Alcohol intake: current Alcohol intake frequency: holidays/special occasions only Comment: once a month 2 drinks Patient Tobacco Use Status: Former Tobacco user e-Cigarette/Vaping Use: Never Used Second Hand Smoke Exposure: No Current occupational status: employed 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 Cognitive needs: No Hearing needs: No Vision needs: Yes Review of Systems Const All systems reviewed & are unremarkable except as noted in HPI and below Physical Exam Vital Signs: BMI result Body Mass Index 33.9 Resp Effort & Inspection: normal respiratory effort and able to speak in complete sentences Telehealth Telehealth Telehealth Platform: Telephone Location of provider rendering services: practice address Location of patient: address on file Patient Identification confirmed using: Name, : Yes Telehealth method: voice only Patient verbally consented to treatment: Yes Patient verbally consented to billing insurance company: Yes Patient informed of any privacy concerns related to visit: Yes Minutes spent on Phone/Video with Pt.: 10 Results Reviewed Results Reviewed: MR knee LT wo con IMPRESSION: There is a grade 1, prolonged grade 2 sprain of superficial MCL cephalad to the joint line. There is also grade 2 sprain of the superior deep band/meniscofemoral coronary ligament. Additionally, there is a contusion/ecchymosis in the subcutaneous soft tissues of the proximal medial lower leg. Age-indeterminate partial tear of proximal and central fibers of ACL. There is 7 mm of anterior tibial translation suggesting underlying laxity. There is no associated bone bruise. Osteoarthritis: There are articular cartilage defects involving patella, trochlea, and medial femoral condyle with very small medial tibial plateau osteophytes. Assessment & Plan Assessment & Plan (1) Sprain of left knee: Code(s): S83.92XA - Sprain of unspecified site of left knee, initial encounter Category: Medical Qualifiers: Encounter type: initial encounter Involved ligament of knee: lateral collateral ligament Qualified Code(s): S83.422A - Sprain of lateral collateral ligament of left knee, initial encounter (2) Contusion of left knee: Code(s): S80.02XA - Contusion of left knee, initial encounter Category: Medical Plan MRI results were reviewed with the patient over the phone. We discussed options today which includes continued modification of activities as symptoms allow. I did recommend a course of physical therapy to help with strengthening and conditioning exercises which she would like to hold off on at this time. If she develops any knee pain that limits her activity we can also discuss cortisone injection. At this time she will continue with conservative treatment and if there is questions or concerns she will contact our office otherwise follow up as needed. Coding Level of Care Code Tele Est Pt Level 3 (54955) Complex EM visit Add On G2211 Diagnoses Sprain of lateral collateral ligament of left knee, initial encounter S83.422A Encounter type: initial encounter Involved ligament of knee: lateral collateral ligament Contusion of left knee S80.02XA
--- OUTSIDE RECORDS SUMMARY | 2024-12-05 15:27 | XMS_ITS | Clinical Summary ---
Author Organization [facility] Address [address] [place] [id number] Phone Care Team Providers Care Restaurant Culinary Manager Name Role Phone Drew Lambert MD Primary Care Provider [phone] Allergies No known active allergies Medications SUMAtriptan (IMITREX) 50 MG tablet TAKE 1 TABLET BY MOUTH EVERY 2 TO 4 HOURS NEEDED FOR MIGRAINE HEADACHE. NOT TO EXCEED 4 DOSES IN 24 HOURS 09/27/2021 Active ibuprofen (ADVIL,MOTRIN) 800 MG tablet Take 800 mg by mouth every 8 (eight) hours as needed. 07/19/2023 Active lisinopril (PRINIVIL,ZESTR IL) 10 MG tablet Take 1 tablet by mouth every morning. 07/21/2023 Active albuterol 90 mcg/actuation inhaler Inhale 2 puffs into the lungs every 6 (six) hours as needed for wheezing. 18 g 08/23/2023 Active Active Problems No known active problems Immunizations No known immunizations Social History Tobacco Use Types Packs/Day Years Used Date Smoking Tobacco: Never Smokeless Tobacco: Never Alcohol Use Standard Drinks/Week Comments Yes 0 (1 standard drink = 0.6 oz pur e alcohol) Education Answer Date Recorded Are you interested in more education? Not on harinder e 09/10/2022 Are you concerned about learning? Not on file 09/10/2022 No 09/10/2022 No 09/10/2022 Digital Access Answer Date Recorded No 10/09/2022 No 10/09/2022 No 10/09/2022 Reliable internet access at home? Not on file 10/09/2022 Device with a working camera? Not on file Comments Unknown Sex and Gender Information Value Date Recorded Sex Assigned at Not on file Legal Sex Female 8:05 AM EDT Gender Identity Not on file Sexual Orientation Not on file Last Filed Vital Signs Vital Sign Reading Time Taken Comments Blood Pressure 160/92 08/23/2023 4:28 PM EDT Pulse 84 08/23/2023 4:28 PM EDT Temperature 36.4 C (97.6 F) 08/23/2023 4:28 PM EDT Respiratory Rate 18 08/23/2023 4:28 PM EDT Oxygen Saturation 98% 08/23/2023 4:28 PM EDT Inhaled Oxygen Concentration - - Weight 88.5 kg (195 lb) 10/20/2021 10:54 AM EDT Height 167.6 cm (5' 6 ) 10/20/2021 10:54 AM EDT Body Mass Index 31.47 10/20/2021 10:54 AM EDT Plan of Treatment Health Maintenance Due Date Last Done Comments CREATININE LEVEL 1969 LIPID PANEL 1969 POTASSIUM LEVEL 1969 DEPRESSION SCREENING 1981 HEPATITIS C SCREENING 1987 HIV ONE-TIME SCREENING (18-6 5 YEARS) 1987 PAP SMEAR 1990 MAMMOGRAM 2009 COLOGUARD 2014 COLONOSCOPY 2014 COLORECTAL CANCER SCREENING 2014 FIT TEST 2014 FOBT 2014 SIGMOIDOSCOPY 2014 VIRTUAL COLONOSCOPY 2014 PNEUMOCOCCAL VACCINES (50+ years) (1 of 1 - PCV) 2019 ZOSTER VACCINES (1 of 2) 2019 COVID-19 VACCINE (4 - 2023-2 5 season) 2024 05/21/2021, 09/23/2020, 09/01/2020 Adult Td,Tdap Booster 02/23/2027 02/23/2017 SMOKING STATUS SCREENING (On ce After 26 Yrs) Completed 10/20/2021 HEPATITIS A VACCINES Aged Out No long er eligible based on patient's age to complete this topic HIB VACCINES Aged Out No longer eligi ble based on patient's age to complete this topic MENINGOCOCCAL VACCINES (ACWY) Aged Out No longer eligible based on patient's age to complete this topic MENINGOCOCCAL VACCINES (B) Aged Out N o longer eligible based on patient's age to complete this topic Medical Devices Not on file Insurance [address] [place], [place] [address] [place], [place] [address] [address] [place], [place] [address] [place], [place] [address] Care Teams Restaurant Culinary Manager Relationship Specialty Start Date End Date Drew Lambert MD [address] [place] [id number] PCP - General Internal Medicine 10/18/21 Additional Source Comments The information contained in this document represents components of the legal health record. It is not the complete legal health record.[facility]
[2024-12-05 15:33] VITALS: BMI 33.9
== END 2024-12-05 15:30 | disposition home or self-care (01) ==
LOC: HO.HOS 15:25
PROVIDERS: PCP Internal Medicine; Visit Provider Physician Assistant
DX: S83.422A Sprain of lateral collateral ligament of left knee, initial encounter (principal); S80.02XA Contusion of left knee, initial encounter
CPT/HCPCS: 99213; G2211

== ENCOUNTER 2025-04-14 07:47 | Outpatient (AMB) | payer OTHER, SELFPAY ==
--- OUTSIDE RECORDS SUMMARY | 2025-04-14 07:50 | XMS_ITS | Clinical Summary ---
Author Organization [facility] Address [address] [place] [phone] Phone Care Team Providers Care Direct Response Consultant Name Role Phone Drew Lambert MD Primary Care Provider [phone] Allergies No known active allergies Medications SUMAtriptan [...] HEPATITIS C SCREENING 1987 HIV ONE-TIME SCREENING (18-65 YEARS) 1987 PAP SMEAR 1990 MAMMOGRAM 2009 COLOGUARD 2014 COLONOSCOPY 2014 COLORECTAL CANCER SCREENING 2014 FIT TEST 2014 FOBT 2014 SIGMOIDOSCOPY 2014 VIRTUAL COLONOSCOPY 2014 PNEUMOCOCCAL VACCINES (50+ years) (1 of 1 - PCV) 2019 ZOSTER VACCINES (1 of 2) 2019 INFLUENZA VACCINE (#1) 2024 3, 03/25/2022, 03/15/2021, Additional history exists COVID-19 VACCINE ( - 2024- season) 2025 05/21/2021, 09/23/2020, 09/01/2020 Adult Td,Tdap Booster 02/23/2027 02/23/2017 RSV VACCINE (1 - 1-dose 75+ series) 01/19/2044 SMOKING STATUS SCREENING (Once After 26 Yrs) Completed 10/20/2021 HEPATITIS A [...] topic Medical Devices Not on file Insurance [address] [place] [address] [place], [place] [address] [place], [place] [address] Care Teams Direct Response Consultant Relationship Specialty Start Date End Date Drew Lambert MD [address] [place] [phone] PCP - General Internal Medicine 10/18/21 Additional Source Comments The information contained in this document represents components of the legal health record. It is not the complete legal health record.[facility]
[2025-04-14 08:03] VITALS: BP 130/72; PULSE 58; O2SAT 98; BMI 33.7
--- NOTE | 2025-04-14 08:03 | A.OFFPC_ITS ---
Vital Signs 04/14/25 08:03 Height 5 ft 6 in Weight 209 lb BMI 33.7 BP 130/72 Blood Pressure Location Lt brachial Position Sitting Pulse 58 Pulse Source Pulse Oximeter Pulse Oximetry (%) 98 Oxygen Delivery Method Room Air Intake Visit Reasons: PE Allergies No Known Allergies Allergy (Verified 04/14/25 08:13) Medication List - Last Reconciled 04/14/25 by Eufemia Hutchinson PA-C blood pressure monitor (Blood Pressure Kit) As directed ibuprofen 800 mg PO Q8H PRN 30 days lisinopril 10 mg PO DAILY mecobalamin (vitamin B12) 1,000 mcg sublingual BEDTIME sumatriptan succinate (Imitrex) 50 mg PO Q2-4H PRN Tobacco use date assessed: 04/14/25 Dental Screening Dental Screen Date: 04/14/25 Did you have a dental visit in the last 12 months?: Yes Did you have a dental problem in the last 6 months where you did not have access to dental care?: No Was dental information given to patient?: Patient has dentist HPI PE HPI Details 55-year-old female with past medical his tory of migraines, hypercholesterolemia, hypertension, impaired fasting glucose last seen 03/[address] Lambert coming in for annual exam. In review of the notes, patient was seen by Orthopedics 11/2024 recommending physical therapy and follow up as needed. Presenting for an annual wellness exam. The patient reports a medical issue with the knee within the past year, for which the patient saw an orthopedist and had an MRI. The MRI reportedly showed nothing requiring intervention, though the knee remains sore and painful depending on the activity, particularly with squa tting. The patient was offered a cortisone injection but has not pursued it. The patient has a history of migraines, which currently occur about three to four times per month, and last for a few hours. The patient reports using a sumatriptan only once in the past month for a migraine. mammo: 04/2024 eye doctor: yearly Jonatan colonoscopy: 04/2024 repeat 1-2 years pap smear: [facility] vaccines: UTD flu given today PFSH Medical History NSVT (nonsustained ventricular tachycardia) Cough Trigger finger of all digits of right hand Blood pressure elevated without history of HTN Breast cancer screening by mammogram Right ventricular dilation Sleep disorder breathing Arrhythmia Vertigo Impaired glucose tolerance Gastrointestinal multiple polyposis syndrome Tubulovillous adenoma Abscess of right earlobe Migraine Dysphagia Family history of colon cancer Vitamin B12 deficiency Ovarian cyst Hypercholesterolemia Obesity (BMI 30-39.9) Surgical History Status post oophorectomy Hx of colonoscopy (~1999) History of left salpingo-oophorectomy History of dilatation and curettage Family History Father Colon cancer Mother Lymphoma Breast cancer Maternal Grandmother Lymphoma Social History Housing: House Are you a primary health care analyst to a significant other at home: No Do you presently have visiting nurse or other home services: No Alcohol intake: current Alcohol intake frequency: holidays/special occasions only Comment: once a month 2 drinks Patient Tobacco Use Status: Former Tobacco user Tobacco use type: Cigarette e-Cigarette/Vaping Use: Never Used Second Hand Smoke Exposure: No Current occupational status: employed 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 1. Little interest or pleasure in doing things: not at all 2. Feeling down, depressed, or hopeless: not at all 3. Trouble falling or staying asleep, or sleeping too much: not at all 4. Feeling tired or having little energy: not at all 5. Poor appetite or overeating: not at all 6. Feeling bad about yourself - or that you are a failure or have let yourself or your family down: not at all 7. Trouble concentrating on things, such as reading the newspaper or watching television: not at all 8. Moving or speaking so slowly that other people could have noticed. Or the opposite - being so fidgety or restless that you have been moving around a lot more than usual: not at all 9. Thoughts that you would be better off or of hurting yourself in some way: not at all Total score: 0 Depression Screening Interpretation: Negative Depression Screening Done: Yes Source: Developed by Drs. Shadi Prieto, Venus Monsalve, Godwin Lock and colleagues, with an educational jose r from [employer]. Thrive Questionnaire Date Thrive assessed: 04/14/25 I am a: Patient What is your living situation today?: I have a steady place to live Within the past 12 months, did the food you bought not last and you didn't have the money to get more?: Never true Within the past 12 months, did you worry whether your food would run out before you got money to buy more?: Never true Do you have trouble paying for medicines?: No Do you have trouble getting transportation to medical appointments?: No Do you have trouble paying your heating and electricity bill?: No Do you have trouble taking care of your child, family member or friend?: No Do you have trouble with day-to-day activities such as bathing, preparing meals, shopping, managing finances, etc.?: No Are you currently unemployed and looking for a job?: No Are you interested in more education?: No Please select the resources that you would like help with: None Currently or been in a relationship where the following occur: No concerns reported THRIVE Score: 0 AUDIT C Alcohol Use Questionnaire (AUDIT-C) 1. How often do you have a drink containing alcohol?: Monthly or less 2. How many drinks containing alcohol do you have on a typical day when you are drinking?: 1 or 2 3. How often do you have six or more drinks on one occasion?: Never Total Score: 1 FARZANEH-7 AMB Questionnaire FARZANEH-7 Date FARZANEH - 7 assessed: 04/14/25 Feeling nervous, anxious, or on edge: 0 = Not at all Not being able to stop or control worryin = Not at all Worrying too much about different things: 0 = Not at all Trouble relaxin = Not at all Being so restless that it is hard to sit still: 0 = Not at all Becoming easily annoyed or irritable: 0 = Not at all Feeling afraid as if something awful might happen: 0 = Not at all Total FARZANEH-7 score (0-4 normal; 5-9 mild; 10-14 moderate; 15-21 severe): 0 Source: Developed by Moshe Elizabethet B.W. Bello, Godwin Lock and colleagues, with an educational jose r from [employer]. Review of Systems Const Denies body aches, Denies fatigue, Denies fever(s), Denies frequent falls, Denies headache(s) and Denies weakness Eyes Reports no additional complaints and Denies change in vision ENT Denies dysphagia, Denies dizziness, Denies facial pain, Denies headache(s), Denies nasal congestion and Denies odynophagia Card Denies chest pain, Denies syncope, Denies irregular heart rhythm, Denies leg edema, Denies lightheadedness and Denies dyspnea Resp Denies cough and Denies dyspnea GI Denies constipation, Denies dysphagia, Denies dyspepsia, Denies diarrhea, Denies nausea, Denies odynophagia and Denies vomiting Denies urinary frequency, Denies dysuria, Denies urinary hesitancy and Denies urinary urgency Musc Denies back pain and Denies myalgias Skin/Breast Reports system reviewed and no additional complaints, except as documented Neuro Denies dizziness, Denies syncope, Denies frequent falls, Denies headache(s) and Denies weakness Psych Reports no additional complaints Endo Denies fatigue Physical exam (Primary Care) Vital Signs: Last Vital Signs Pulse 58 04/14/25 08:03 BP 130/72 04/14/25 08:03 Pulse Ox 98 04/14/25 08:03 Oxygen Delivery Method Room Air 04/14/25 08:03 BMI result Body Mass Index 33.7 Tobacco/Smoking Status: Tobacco use Status Tobacco use date assessed 04/14/25 04/14/25 08:05 Patient Tobacco Use Status Former Tobacco user 04/14/25 08:05 Tobacco use type Cigarette 04/14/25 08:05 e-Cigarette/Vaping Use Never Used 04/14/25 08:05 PHQ-9: PHQ-9 Score PHQ-9: Total score 0 04/14/25 08:05 Depression Screening Interpretation: Negative Thrive Assessment: Date of Thrive Assessment Date Thrive assessed 04/14/25 04/14/25 08:05 Currently or been in a relationship where the following occur: No concerns reported Const General: cooperative, healthy appearing, comfortable and no acute distress Orientation/consciousness: patient oriented x3 HENMT Head: Yes normocephalic Ears: hearing grossly normal bilaterally, external ears normal, TM's normal bilaterally and EAC's normal General nose exam: Normal external nose present Face and sinus: Yes normal facial exam and Yes sinuses nontender Mouth: Normal oral and palatal mucosa present and tongue normal Throat: Yes posterior oropharynx normal Eyes General: appearance normal, both eyes and all related structures Conjunctivae: conjunctivae normal Pupils: Equal, round and reactive pupils present EOM: EOMs intact bilaterally and No Nystagmus present Neck Neck: Yes normal visual inspection, Yes full ROM and Yes no lymphadenopathy Chest Chest palpation & inspection: normal inspection of the chest Resp Effort & Inspection: normal respiratory effort Auscultation: clear to auscultation bilaterally, no crackles, no rales, no rhonchi, no wheezes and breath sounds present Cardio Rate: regular rate Rhythm: regular rhythm Peripheral pulses: radial pulses present and dorsalis pedis present GI Inspection: Yes normal to inspection and No Abdominal wall edema Palpation (GI): Soft to palpation, not firm and nontender Auscultation: normal bowel sounds Rectal Exam - Female: deferred General: Yes no CVA tenderness Back/Spine/Pelvis Back: no CVA tenderness Skin General skin exam: no rashes or lesions noted Neuro General: patient oriented x3 Cranial nerves: Yes Equal, round and reactive pupils present, Yes Midline tongue present, Yes Ability to bilaterally elevate shoulders present and No Nystagmus present Gait exam (Neuro): Normal gait present Extrem General: Yes normal to inspection, Yes full ROM, No no pedal edema and No edema Psych Speech and movement: Normal speech and movement present Affect: normal affect Insight: Good insight present (Psych) Judgement: Good judgement present (Psych) Office Procedures Flu Questionnaire Does the patient have a severe egg allergy?: No Does the patient have severe life threatening allergies?: No Does the patient have a fever or illness today?: No Has the patient ever had Guillain-Mentone Syndrome?: No Has the patient ever had any past reaction to a flu shot?: No Immunizations Fluarix [id number] (PF) 45 mcg (15 mcg x 3)/0.5 mL IM syringe Performing Provider: Eufemia Hutchinson PA-C Performing Location: [facility] Administered by: Otilia Soto CMA on 04/14/25 08:28 Dose Route Admin Location Dispensed Lot Number Expiration Date NDC Latin Teacher 0.5 mL IM Left Deltoid 0.5 mL [id number] 11/11/25 12114-577-25 [employer] VIS Given Date VIS Provided VIS Publication Date 04/14/25 Single Vaccine 24 Eligibility Eligibility Date Funding Source Not VF Eligible 04/14/25 Private Coding Level of Care Code Est Pt Prev Care 40-64y(33467) Diagnoses Annual physical exam Z00.00 Primary hypertension I10 Hypertension type: primary hypertension Hypercholesterolemia E78.00 Impaired fasting glucose R73.01 Obesity (BMI 30-39.9) E66.9 Vitamin D deficiency E55.9 Vitamin B12 deficiency E53.8 Multiple adenomatous polyps D36.9 Internal derangement of left knee M23.92 Laterality: left Migraine G43.909 Assessment & Plan Assessment & Plan (1) Annual physical exam: Code(s): Z00.00 - Encounter for general adult medical examination without abnormal findings Category: Medical Plan: Patient is up-to-date on all recommended routine screenings and vaccinations for her age. Blood work has been ordered today. Healthy diet and regular exercise is encouraged. Plan to follow up yearly or sooner as needed or pending blood work evaluation. (2) Hypertension: Code(s): I10 - Essential (primary) hypertension Category: Medical Qualifiers: Hypertension type: primary hypertension Qualified Code(s): I10 - Essential (primary) hypertension Plan: Continue on current blood pressure medication. Avoid salt intake and encourage healthy diet and regular exercise. (3) Hypercholesterolemia: Code(s): E78.00 - Pure hypercholesterolemia, unspecified Category: Medical Plan: Avoid foods that are high in cholesterol such as red meat, fried foods, eggs and baked goods. Triglyceride goal of less than 150 and LDL goal of less than 130. Ordered for updated blood work. (4) Impaired fasting glucose: Code(s): R73.01 - Impaired fasting glucose Category: Medical Plan: Decrease the amount of carbohydrates such as pasta, bread, rice, and potatoes and limit the amount of sweets. Although fruits are generally healthy they should be eaten in moderation as they are still high in sugar. (5) Obesity (BMI 30-39.9): Code(s): E66.9 - Obesity, unspecified Category: Medical Plan: Healthy diet and regular exercise is encouraged. (6) Vitamin D deficiency: Code(s): E55.9 - Vitamin D deficiency, unspecified Category: Medical Plan: Blood work ordered (7) Vitamin B12 deficiency: Code(s): E53.8 - Deficiency of other specified B group vitamins Category: Medical Plan: Blood work ordered (8) Multiple adenomatous polyps: Comment: \04/2024 = 3 TA's repeat in 3 years; 09/2022= 4 polyps to greater than a cm repeat in 2 years, 2020 scope= 1 tubulovillous adenoma and multiple polyposis repeat in 1 year Code(s): D36.9 - Benign neoplasm, unspecified site Category: Medical Plan: Continue to follow with GI recommendations for 3 year follow up (9) Internal derangement of knee: Code(s): M23.90 - Unspecified internal derangement of unspecified knee Category: Medical Qualifiers: Laterality: left Qualified Code(s): M23.92 - Unspecified internal derangement of left knee Plan: No longer following with orthopedics. She will follow up as needed with their office and continue with activity modification and ibuprofen as needed (10) Migraine: Code(s): G43.909 - Migraine, unspecified, not intractable, without status migrainosus Category: Medical Plan: Continue to use sumatriptan as needed Plan This note was constructed using voice recognition software. While every effort has been made to ensure accuracy and roller coaster designer, still areas may have been included sometimes these areas may affect the content or meeting of the given symptoms. Total time spent caring for the patient today was 30 minutes. This includes time spent before the visit reviewing the chart, time spent during the visit, and time spent after the visit and documentation. Patient was informed and verbally consented to the use of an ambient scribe for clinic note documentation during this visit. Orders: Orders Vitamin D 25-OH Total Today E55.9 - Vitamin D deficiency, unspecified, Z13.21 - Encounter for screening for nutritional disorder Comprehensive Met. Panel Today I10 - Essential (primary) hypertension, Z00.00 - Encounter for general adult medical examination without abnormal findings Complete Blood Count Auto Diff Today I10 - Essential (primary) hypertension, Z13.0 - Encounter for screening for diseases of the blood and blood-forming organs and certain disorders involving the immune mechanism Hemoglobin A1c Today R73.01 - Impaired fasting glucose Influenza [id number] Immunization Today Z23 - Encounter for immunization Lipid Panel Today E78.00 - Pure hypercholesterolemia, unspecified Vitamin B12 and Folate Today E53.8 - Deficiency of other specified B group vitamins, Z13.21 - Encounter for screening for nutritional disorder UA CC w/rflx Micro + Cult Today R35.89 - Other polyuria TSH reflex Free T4 Today Z13.29 - Encounter for screening for other suspected endocrine disorder
== END 2025-04-14 08:38 | disposition home or self-care (01) ==
LOC: HO.HMCH 07:47
PROVIDERS: PCP Internal Medicine
DX: Z00.00 Encounter for general adult medical examination without abnormal findings (principal); I10 Essential (primary) hypertension; E78.00 Pure hypercholesterolemia, unspecified; R73.01 Impaired fasting glucose; E66.9 Obesity, unspecified; E55.9 Vitamin D deficiency, unspecified; E53.8 Deficiency of other specified B group vitamins; D36.9 Benign neoplasm, unspecified site; M23.92 Unspecified internal derangement of left knee; G43.909 Migraine, unspecified, not intractable, without status migrainosus; Z23 Encounter for immunization

== ENCOUNTER 2025-04-14 07:47 | Outpatient (REF) | payer OTHER, SELFPAY ==
[2025-04-14 09:14] LABS: MANUAL DIFF FLAG NO
[2025-04-14 09:49] LABS: Hematocrit 44.1 % (37.0-47.0); Hemoglobin 14.1 g/dl (12.0-16.0); Imm Gran Abs Auto 0.01 X10*3/uL (0.00-0.03); Imm Gran Pct Auto 0.1 % (0.0-0.4); Lymphocytes Absolute Auto 1.8 X10*3/uL (1.2-4.9); Mean Corpuscular HGB Conc 32.0 g/dl (31.0-35.0); Mean Corpuscular Hemoglobin 27.6 pg (27.0-33.0); Mean Corpuscular Volume 86.3 fL (80.0-98.0); NRBC Abs Auto 0.000 X10*3/uL (0.0-0.012); NRBC Pct Auto 0.0 /100WBC (0.0-0.2); Platelet Count 290 X10*3/uL (160-400); Red Blood Count 5.11 X10*6/uL (4.20-5.50); White Blood Count 7.7 X10*3/uL (4.8-10.8)
[2025-04-14 10:13] LABS: Appearance Urine Cloudy; Glucose Urine UA Negative (Negative); PH 5.5 (5.0-9.0); Specific Gravity - Urine 1.020 (1.005-1.025); UMIC TRIGGER UACC YES
[2025-04-14 10:34] LABS: Alanine Aminotransferase 14 U/L (0-31); Albumin Level 4.4 g/dL (3.5-5.0); Alkaline Phosphatase 81 U/L (39-117); Anion Gap 13 (12-20); Aspartate Amino Transferase 24 U/L (5-31); Blood Urea Nitrogen 10 mg/dL (9-16); Calcium 9.3 mg/dL (8.4-10.2); Carbon Dioxide 25 mmol/L (22-29); Chloride 109 mmol/L (96-108); Cholesterol 214 mg/dL (<200); Estimated Glomerular Filt Rate > 60; HDL Cholesterol 50 mg/dL (>40); Potassium 4.0 mmol/L (3.3-5.1); Sodium 143 mmol/L (135-145); Total Protein 7.8 g/dL (6.5-8.0); Triglycerides 118 mg/dL (<150)
[2025-04-14 10:57] LABS: Folate 8.7 ng/mL (> or = 4.0); Vitamin B12 1378 pg/mL (200-900)
== END 2025-04-14 07:48 | disposition home or self-care (01) ==
LOC: HO.LAB 07:47
PROVIDERS: PCP Internal Medicine
DX: Z00.00 Encounter for general adult medical examination without abnormal findings (principal); I10 Essential (primary) hypertension; Z13.21 Encounter for screening for nutritional disorder; R73.01 Impaired fasting glucose; Z13.29 Encounter for screening for other suspected endocrine disorder; E78.00 Pure hypercholesterolemia, unspecified; E53.8 Deficiency of other specified B group vitamins; Z13.0 Encounter for screening for diseases of the blood and blood-forming organs and certain disorders involving the immune mechanism; E55.9 Vitamin D deficiency, unspecified; Z23 Encounter for immunization; Z13.31 Encounter for screening for depression; Z13.39 Encounter for screening examination for other mental health and behavioral disorders
CPT/HCPCS: 36415; 80053; 80061; 81001; 81003; 82306; 82607; 82746; 83036; 84443; 85025; 90471; 90656; 96127

== ENCOUNTER 2025-04-28 07:41 | Outpatient (REF) | payer OTHER, SELFPAY ==
--- NOTE | ~2025-04-28 | MM_ITS ---
EXAMINATION: MM SCREENING DIGITAL BREAST TOMOSYNTHESIS, BILATERAL CLINICAL INFORMATION: Screening. Asymptomatic. COMPARISON: Mammography: Comparison is made with available priors TECHNIQUE: Digital breast mammography with tomosynthesis is performed in both the craniocaudal and mediolateral oblique views along with computer-aided detection (CAD). FINDINGS: The breasts are heterogeneously dense, which may obscure small masses. There are no significant masses, abnormal calcifications, or other abnormalities. MM/MM tomosynthesis screening BI IMPRESSION: No mammographic evidence of malignancy. ASSESSMENT: BI-RADS Category 1: Negative RECOMMENDATION: Routine annual mammography screening. 1 year F/U This examination should not preclude the clinical evaluation of a suspicious palpable abnormality. This patient's information was entered into a reminder system with a target due date for their next mammogram. Electronically signed by: Judy Adrian DO 04/29/2025 05:26 PM EMERSON
--- OUTSIDE RECORDS SUMMARY | 2025-04-28 07:45 | XMS_ITS | Clinical Summary ---
Author Organization [facility] Address [address] [place] [id number] Phone Care Team Providers Care Assemblyman Or Woman Name Role Phone Drew Lambert MD Primary Care Provider [phone] Allergies No known active allergies Medications SUMAtriptan [...] [place] [address] [address] [place], [place] [address] [place], [place] [id number] Care Teams Assemblyman Or Woman Relationship Specialty Start Date End Date Drew Lambert MD [address] [place] [id number] PCP - General Internal Medicine 10/18/21 Additional Source Comments The information contained in this document represents components of the legal health record. It is not the complete legal health record.[facility]
== END 2025-04-28 07:42 | disposition home or self-care (01) ==
LOC: HO.MAMMO 07:41
PROVIDERS: PCP Internal Medicine; Visit Provider Internal Medicine
DX: Z12.31 Encounter for screening mammogram for malignant neoplasm of breast (principal)
CPT/HCPCS: 77063; 77067

== ENCOUNTER → 2025-04-28 07:45 | Outpatient (BNV) | payer OTHER, SELFPAY | PROVIDERS: PCP Internal Medicine; Visit Provider Internal Medicine | DX: Z12.31 Encounter for screening mammogram for malignant neoplasm of breast (principal) | CPT/HCPCS: 77063; 77067 ==